=== PATIENT | female | born 1945 | race Caucasian/White ===

== ENCOUNTER 2018-05-31 12:10 | Inpatient (IN) | payer OTHER ==
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
[2018-05-31 13:03] LABS: % BASOPHILS 0.6 % (0.0-2.0); % EOSINOPHILS 0.2 % (0.0-5.0); % LYMPHOCYTES 16.8 % (20.0-50.0); % MONOCYTES 14.3 % (2.0-10.0); % NEUTROPHILS 68.1 % (40.0-80.0); HEMATOCRIT 27.2 % (41.0-60); HEMOGLOBIN 8.9 gm/dL (12-16); LYMPHOCYTE ABSOLUTE 1.2 Th/cmm (1.5-3.0); MEAN CELL VOLUME 88.5 fl (81-100); MEAN CORPUSCULAR HGB CONC 32.8 pg (28.0-36.0); MEAN PLATELET VOLUME 7.3 fl; NEUTROPHILE ABSOLUTE 4.7 Th/cmm (1.8-8.0); PLATELET COUNT 250 Th/cmm (150-400); RED BLOOD COUNT 3.07 Mil/cmm (3.80-5.20); RED CELL DISTRIBUTION WIDTH 14.9 % (11.5-20.0); WHITE BLOOD COUNT 6.9 Th/cmm (4.8-10.8)
[2018-05-31 13:19] LABS: ALB/GLOB RATIO 1.4 (1.0-1.8); ALBUMIN 3.3 gm/dL (3.7-5.3); ALKALINE PHOSPHATASE 58 U/L (34-104); ANION GAP 11.3 (7.0-16.0); BILIRUBIN,TOTAL 0.2 mg/dL (0.3-1.0); BUN - UREA NITROGEN 33 mg/dL (7-25); CALCIUM SERUM 8.4 mg/dL (8.6-10.3); CARBON DIOXIDE 27.6 mEq/L (21.0-31.0); CHLORIDE 104 mEq/L (98-107); CHOLESTEROL 123 mg/dL (<200); CREATININE - SERUM 1.1 mg/dL (0.6-1.2); GLUCOSE 108 mg/dL (70-105); HDL -HIGH DENSITY LIPOPROTEIN 45 mg/dL (23-92); POTASSIUM SERUM 3.9 mEq/L (3.5-5.1); SGOT 28 U/L (13-39); SGPT/ALT 19 U/L (7-52); SODIUM SERUM 139 mEq/L (136-145); TOTAL PROTEIN,SERUM 5.7 gm/dL (6.0-8.3); TRIGLYCERIDES 70 mg/dL (<150)
--- NOTE | 2018-05-31 13:38 | Diagnostic Imaging Report ---
Head CT without intravenous contrast Indication: Head trauma, recurrent falls Comparison: None Technique: Axial images were obtained from the vertex to the skull base without IV contrast. Coronal reconstructions were made. Total DLP: 607, [id number] FINDINGS: Images of the brain obtained without contrast demonstrate no evidence of an acute hemorrhage. Atrophy is noted. Mild white matter disease noted. The ventricles and basal cisterns are patent. No mass effect or midline shift. No evidence of a skull fracture or focal soft tissue swelling. There is partial opacification of the right ethmoid air cells and mucosal thickening of the sphenoid sinuses. IMPRESSION: No evidence of acute intracranial hemorrhage. Atrophy. Mild supratentorial white matter disease which is nonspecific and may be due to chronic microvessel ischemia.. Partial opacification of the posterior right ethmoid air cells with calcifications. Findings may be due to chronic sinusitis. Polyposis cannot be excluded.
[2018-05-31 15:15] LABS: URINE SOURCE CLEAN C
[2018-05-31 15:24] LABS: URINE BILIRUBIN NEGATIVE (NEGATIVE); URINE BLOOD NEGATIVE (NEGATIVE); URINE GLUCOSE (UA) NEGATIVE (NEGATIVE); URINE KETONE NEGATIVE (NEGATIVE); URINE LEUKOCYTE ESTERASE NEGATIVE (NEGATIVE); URINE NITRATE NEGATIVE (NEGATIVE); URINE PROTEIN NEGATIVE (NEGATIVE); URINE UROBILINOGEN 0.2 E.U./dL (0.2 - 1.0)
[2018-05-31 15:39] LABS: URINE CLARITY CLEAR (CLEAR); URINE COLOR STRAW
[2018-05-31 15:40] LABS: URINE MICROSCOPIC INDICATED? NO
[2018-05-31] MEDS ORDERED: Haloperidol Lactate 5 mg/mL 1mL Vial IM PRN (15:53)
[2018-05-31] MEDS ORDERED: Haloperidol Lactate 5 mg/mL 1mL Vial ONE (15:55)
[2018-05-31] MEDS ORDERED: Haloperidol Lactate 5 mg/mL 1mL Vial IM ONE (23:15)
[2018-06-01 00:22] VITALS: BP 140/78
[2018-06-01] MEDS: Levothyroxine 0.025 Mg Tab PO SCH (06:44)
[2018-06-01] MEDS: Multivitamin Tab PO SCH (09:49)
--- NOTE | 2018-06-01 14:19 | History & Physical ---
ADMIT DATE: 06/01/2018 DICTATED FOR: Dr. Chay Cloud. CHIEF COMPLAINT: Agitation. HISTORY OF PRESENT ILLNESS: A 72-year-old female who is a board and care resident, admitted to the Geropsych Unit due to 1-day history of agitation. PAST MEDICAL HISTORY: Hypertension, dementia. FAMILY HISTORY: Noncontributory. SOCIAL HISTORY: The patient is a board and care resident. SURGICAL HISTORY: Unknown. ALLERGIES: CODEINE. REVIEW OF SYSTEMS: GENERAL: Denies any fever or chills. CARDIOVASCULAR: Denies any chest pain. RESPIRATORY: Denies shortness of breath. GASTROINTESTINAL: Denies nausea, vomiting, abdominal pain. GENITOURINARY: Denies increased frequency or dysuria. NEUROLOGIC: No headaches, seizures or syncope. PHYSICAL EXAMINATION: GENERAL: Elderly female, awake, alert with some confusion. No apparent distress. VITAL SIGNS: Temperature 97.9, heart rate 68, blood pressure 140/78, respirations 18, O2 97%. HEENT: Head normocephalic, atraumatic. NECK: Supple. No mass. LUNGS: Clear bilaterally. ABDOMEN: Soft, nontender. LABORATORY DATA: WBC 6.8, H and H 8.9 and 27.2, platelet of 250. Sodium 139, potassium 3.9, chloride 104, BUN 33, creatinine 1.1. ASSESSMENT: Agitation, hypertension, dementia. PLAN: Continue patient's home medication. We will adjust the patient's blood pressure medications accordingly. We will continue to monitor this patient. JOB# [id number]
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
[2018-06-02] MEDS: Levothyroxine 0.025 Mg Tab PO SCH (06:31)
[2018-06-02] MEDS: Multivitamin Tab PO SCH (08:50)
--- NOTE | 2018-06-02 13:24 | Internal Medicine Prog Note ---
Internal Medicine Subjective - Subjective Service Date: 06/02/18 Patient seen and examined:: with staff Patient is:: awake, verbal, agitated Per staff patient has:: tolerating meds Internal Medicine Objective - Results Result Diagrams: 05/31/18 12:55 05/31/18 12:55 Recent Labs: Laboratory Last Values WBC 6.9 Th/cmm (4.8-10.8) 05/31/18 12:55 RBC 3.07 Mil/cmm (3.80-5.20) L 05/31/18 12:55 Hgb 8.9 gm/dL (12-16) L 05/31/18 12:55 Hct 27.2 % (41.0-60) L 05/31/18 12:55 MCV 88.5 fl (81-100) 05/31/18 12:55 MCH 29.0 pg (27.0-31.0) 05/31/18 12:55 MCHC Differential 32.8 pg (28.0-36.0) 05/31/18 12:55 RDW 14.9 % (11.5-20.0) 05/31/18 12:55 Plt Count 250 Th/cmm (150-400) 05/31/18 12:55 MPV 7.3 fl 05/31/18 12:55 Neutrophils % 68.1 % (40.0-80.0) 05/31/18 12:55 Lymphocytes % 16.8 % (20.0-50.0) L 05/31/18 12:55 Monocytes % 14.3 % (2.0-10.0) H 05/31/18 12:55 Eosinophils % 0.2 % (0.0-5.0) 05/31/18 12:55 Basophils % 0.6 % (0.0-2.0) 05/31/18 12:55 Sodium 139 mEq/L (136-145) 05/31/18 12:55 Potassium 3.9 mEq/L (3.5-5.1) 05/31/18 12:55 Chloride 104 mEq/L (98-107) 05/31/18 12:55 Carbon Dioxide 27.6 mEq/L (21.0-31.0) 05/31/18 12:55 Anion Gap 11.3 (7.0-16.0) 05/31/18 12:55 BUN 33 mg/dL (7-25) H 05/31/18 12:55 Creatinine 1.1 mg/dL (0.6-1.2) 05/31/18 12:55 Est GFR ( Amer) TNP 05/31/18 12:55 Est GFR (Non-Af Amer) TNP 05/31/18 12:55 BUN/Creatinine Ratio 30.0 05/31/18 12:55 Glucose 108 mg/dL (70-105) H 05/31/18 12:55 Calcium 8.4 mg/dL (8.6-10.3) L 05/31/18 12:55 Total Bilirubin 0.2 mg/dL (0.3-1.0) L 05/31/18 12:55 AST 28 U/L (13-39) 05/31/18 12:55 ALT 19 U/L (7-52) 05/31/18 12:55 Alkaline Phosphatase 58 U/L (34-104) 05/31/18 12:55 Total Protein 5.7 gm/dL (6.0-8.3) L 05/31/18 12:55 Albumin 3.3 gm/dL (3.7-5.3) L 05/31/18 12:55 Globulin 2.4 gm/dL 05/31/18 12:55 Albumin/Globulin Ratio 1.4 (1.0-1.8) 05/31/18 12:55 Triglycerides 70 mg/dL (<150) 05/31/18 12:55 Cholesterol 123 mg/dL (<200) 05/31/18 12:55 LDL Cholesterol Direct 63 mg/dL (75-193) L 05/31/18 12:55 HDL Cholesterol 45 mg/dL (23-92) 05/31/18 12:55 TSH 3.69 uIU/ml (0.34-5.60) 05/31/18 12:55 Urine Source CLEAN C 05/31/18 14:06 Urine Color STRAW 05/31/18 14:06 Urine Clarity CLEAR (CLEAR) 05/31/18 14:06 Urine pH 6.0 (4.6 - 8.0) 05/31/18 14:06 Ur Specific [place] 1.010 (1.005-1.030) 05/31/18 14:06 Urine Protein NEGATIVE mg/dL (NEGATIVE) 05/31/18 14:06 Urine Glucose (UA) NEGATIVE mg/dL (NEGATIVE) 05/31/18 14:06 Urine Ketones NEGATIVE mg/dL (NEGATIVE) 05/31/18 14:06 Urine Blood NEGATIVE (NEGATIVE) 05/31/18 14:06 Urine Nitrate NEGATIVE (NEGATIVE) 05/31/18 14:06 Urine Bilirubin NEGATIVE (NEGATIVE) 05/31/18 14:06 Urine Urobilinogen 0.2 E.U./dL (0.2 - 1.0) 05/31/18 14:06 Ur Leukocyte Esterase NEGATIVE (NEGATIVE) 05/31/18 14:06 RPR NONREACTIVE (NONREACTIVE) 05/31/18 12:55 - Physical Exam Vitals and I&O: Vital Signs Temp 97.7 F 06/02/18 06:22 Pulse 79 06/02/18 06:22 Resp 19 06/02/18 06:22 BP 145/88 06/02/18 06:22 Pulse Ox 97 06/02/18 06:22 Intake & Output 06/01/18 06/02/18 06/02/18 18:59 06:59 18:59 Intake Total 720 240 Output Total 120 Balance 720 120 Intake: Oral 720 240 Output: Urine 120 Other: # Voids 3 # Bowel Movements 2 Active Medications: Current Medications Atorvastatin Calcium (Lipitor) 40 mg PO DAILY [facility] Stop: 07/31/18 08:59 Last Admin: 06/02/18 08:50 Dose: 40 mg Citalopram Hydrobromide (Celexa) 10 mg PO DAILY [facility] Stop: 07/31/18 08:59 Last Admin: 06/02/18 08:50 Dose: 10 mg Divalproex Sodium (Depakote Dr) 500 mg PO TID [facility]; Protocol Stop: 07/31/18 08:59 Last Admin: 06/02/18 08:50 Dose: 500 mg Docusate Sodium (Colace) 100 mg PO DAILY PRN PRN Reason: Constipation Stop: 07/31/18 00:21 Donepezil HCl (Aricept) 5 mg PO DAILY [facility] Stop: 07/31/18 08:59 Last Admin: 06/02/18 08:50 Dose: 5 mg Levothyroxine Sodium (Synthroid) 0.025 mg PO QDAC [facility] Stop: 07/31/18 07:29 Last Admin: 06/02/18 06:31 Dose: Not Given Lorazepam (Ativan) 0.5 mg PO Q6HR PRN; Protocol PRN Reason: Anxiety Stop: 07/31/18 00:21 Multivitamins/Vitamin C (Theragran) 1 tab PO DAILY [facility] Stop: 07/31/18 08:59 Last Admin: 06/02/18 08:50 Dose: 1 tab Quetiapine Fumarate (Seroquel) 25 mg PO HS [facility]; Protocol Stop: 08/01/18 20:59 General: alert HEENT: NC/AT, PERRLA Neck: Supple Lungs: CTAB Cardiovascular: RRR, Normal S1, Normal S2, without murmur Abdomen: soft, non-tender, non-distended, positive bowel sound Extremities: excoriation Internal Medicine Assmt/Plan - Assessment Assessment: ASSESSMENT: Agitation, hypertension, dementia. - Plan Plan: PLAN: Continue patient's home medication. We will adjust the patient's blood pressure medications accordingly. We will continue to monitor this patient.
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
[2018-06-03] MEDS: Levothyroxine 0.025 Mg Tab PO SCH (06:32)
[2018-06-03] MEDS: Multivitamin Tab PO SCH (08:47)
--- NOTE | 2018-06-03 15:45 | Internal Medicine Prog Note ---
Internal Medicine Subjective - Subjective Service Date: 06/03/18 Patient is:: awake, verbal, agitated Per staff patient has:: tolerating meds Internal Medicine Objective - Results Result Diagrams: 05/31/18 12:55 05/31/18 12:55 Recent Labs: Laboratory Last Values WBC 6.9 Th/cmm (4.8-10.8) 05/31/18 12:55 RBC 3.07 Mil/cmm (3.80-5.20) L 05/31/18 12:55 Hgb 8.9 gm/dL (12-16) L 05/31/18 12:55 Hct 27.2 % (41.0-60) L 05/31/18 12:55 MCV 88.5 fl (81-100) 05/31/18 12:55 MCH 29.0 pg (27.0-31.0) 05/31/18 12:55 MCHC Differential 32.8 pg (28.0-36.0) 05/31/18 12:55 RDW 14.9 % (11.5-20.0) 05/31/18 12:55 Plt Count 250 Th/cmm (150-400) 05/31/18 12:55 MPV 7.3 fl 05/31/18 12:55 Neutrophils % 68.1 % (40.0-80.0) 05/31/18 12:55 Lymphocytes % 16.8 % (20.0-50.0) L 05/31/18 12:55 Monocytes % 14.3 % (2.0-10.0) H 05/31/18 12:55 Eosinophils % 0.2 % (0.0-5.0) 05/31/18 12:55 Basophils % 0.6 % (0.0-2.0) 05/31/18 12:55 Sodium 139 mEq/L (136-145) 05/31/18 12:55 Potassium 3.9 mEq/L (3.5-5.1) 05/31/18 12:55 Chloride 104 mEq/L (98-107) 05/31/18 12:55 Carbon Dioxide 27.6 mEq/L (21.0-31.0) 05/31/18 12:55 Anion Gap 11.3 (7.0-16.0) 05/31/18 12:55 BUN 33 mg/dL (7-25) H 05/31/18 12:55 Creatinine 1.1 mg/dL (0.6-1.2) 05/31/18 12:55 Est GFR ( Amer) TNP 05/31/18 12:55 Est GFR (Non-Af Amer) TNP 05/31/18 12:55 BUN/Creatinine Ratio 30.0 05/31/18 12:55 Glucose 108 mg/dL (70-105) H 05/31/18 12:55 Calcium 8.4 mg/dL (8.6-10.3) L 05/31/18 12:55 Total Bilirubin 0.2 mg/dL (0.3-1.0) L 05/31/18 12:55 AST 28 U/L (13-39) 05/31/18 12:55 ALT 19 U/L (7-52) 05/31/18 12:55 Alkaline Phosphatase 58 U/L (34-104) 05/31/18 12:55 Total Protein 5.7 gm/dL (6.0-8.3) L 05/31/18 12:55 Albumin 3.3 gm/dL (3.7-5.3) L 05/31/18 12:55 Globulin 2.4 gm/dL 05/31/18 12:55 Albumin/Globulin Ratio 1.4 (1.0-1.8) 05/31/18 12:55 Triglycerides 70 mg/dL (<150) 05/31/18 12:55 Cholesterol 123 mg/dL (<200) 05/31/18 12:55 LDL Cholesterol Direct 63 mg/dL (75-193) L 05/31/18 12:55 HDL Cholesterol 45 mg/dL (23-92) 05/31/18 12:55 TSH 3.69 uIU/ml (0.34-5.60) 05/31/18 12:55 Urine Source CLEAN C 05/31/18 14:06 Urine Color STRAW 05/31/18 14:06 Urine Clarity CLEAR (CLEAR) 05/31/18 14:06 Urine pH 6.0 (4.6 - 8.0) 05/31/18 14:06 Ur Specific [place] 1.010 (1.005-1.030) 05/31/18 14:06 Urine Protein NEGATIVE mg/dL (NEGATIVE) 05/31/18 14:06 Urine Glucose (UA) NEGATIVE mg/dL (NEGATIVE) 05/31/18 14:06 Urine Ketones NEGATIVE mg/dL (NEGATIVE) 05/31/18 14:06 Urine Blood NEGATIVE (NEGATIVE) 05/31/18 14:06 Urine Nitrate NEGATIVE (NEGATIVE) 05/31/18 14:06 Urine Bilirubin NEGATIVE (NEGATIVE) 05/31/18 14:06 Urine Urobilinogen 0.2 E.U./dL (0.2 - 1.0) 05/31/18 14:06 Ur Leukocyte Esterase NEGATIVE (NEGATIVE) 05/31/18 14:06 RPR NONREACTIVE (NONREACTIVE) 05/31/18 12:55 - Physical Exam Vitals and I&O: Vital Signs Temp 97.4 F 06/03/18 06:43 Pulse 90 06/03/18 06:43 Resp 20 06/03/18 06:43 BP 153/95 06/03/18 06:43 Pulse Ox 100 06/03/18 06:43 Intake & Output 06/02/18 06/03/18 06/03/18 18:59 06:59 18:59 Intake Total 1300 Balance 1300 Intake: Oral 1300 Other: # Voids 3 2 # Bowel Movements 0 0 Active Medications: Current Medications Atorvastatin Calcium (Lipitor) 40 mg PO DAILY [facility] Stop: 07/31/18 08:59 Last Admin: 06/03/18 08:48 Dose: 40 mg Citalopram Hydrobromide (Celexa) 10 mg PO DAILY [facility] Stop: 07/31/18 08:59 Last Admin: 06/03/18 09:00 Dose: 10 mg Divalproex Sodium (Depakote Dr) 500 mg PO TID [facility]; Protocol Stop: 07/31/18 08:59 Last Admin: 06/03/18 15:23 Dose: 500 mg Docusate Sodium (Colace) 100 mg PO DAILY PRN PRN Reason: Constipation Stop: 07/31/18 00:21 Donepezil HCl (Aricept) 5 mg PO DAILY [facility] Stop: 07/31/18 08:59 Last Admin: 06/03/18 08:48 Dose: 5 mg Levothyroxine Sodium (Synthroid) 0.025 mg PO QDAC [facility] Stop: 07/31/18 07:29 Last Admin: 06/03/18 06:32 Dose: 0.025 mg Lorazepam (Ativan) 0.5 mg PO Q6HR PRN; Protocol PRN Reason: Anxiety Stop: 07/31/18 00:21 Last Admin: 06/03/18 15:23 Dose: 0.5 mg Multivitamins/Vitamin C (Theragran) 1 tab PO DAILY [facility] Stop: 07/31/18 08:59 Last Admin: 06/03/18 08:47 Dose: 1 tab Quetiapine Fumarate (Seroquel) 37.5 mg PO HS [facility]; Protocol Stop: 08/02/18 20:59 General: alert HEENT: NC/AT, PERRLA Neck: Supple Lungs: CTAB Cardiovascular: RRR, Normal S1, Normal S2, without murmur Abdomen: soft, non-tender, non-distended, positive bowel sound Extremities: excoriation Internal Medicine Assmt/Plan - Assessment Assessment: ASSESSMENT: Agitation, hypertension, dementia. - Plan Plan: PLAN: Continue patient's home medication. We will adjust the patient's blood pressure medications accordingly. We will continue to monitor this patient.
--- NOTE | 2018-06-03 20:57 | Progress Notes ---
DATE: 06/03/2018 The patient in the hospital, slept for about 6 hours. No episodes of awakening. 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 Ongoing safety concerns. The patient also believing that we were all in her home and she is asking us to leave. She is very disoriented, disrupting the milieu. I will be increasing her dosing of Seroquel today to attempt to target these delusions, odd ideations. JOB# [id number]
[2018-06-04] MEDS: Levothyroxine 0.025 Mg Tab PO SCH (06:33)
[2018-06-04] MEDS: Multivitamin Tab PO SCH (08:36)
--- NOTE | 2018-06-04 12:26 | Internal Medicine Prog Note ---
Internal Medicine Subjective - Subjective Patient seen and examined:: with staff, chart reviewed Patient is:: awake, verbal, interactive, agitated Per staff patient has:: no adverse event, no episodes of fall, tolerating meds Internal Medicine Objective - Results Result Diagrams: 05/31/18 12:55 05/31/18 12:55 Recent Labs: Laboratory Last Values WBC 6.9 Th/cmm (4.8-10.8) 05/31/18 12:55 RBC 3.07 Mil/cmm (3.80-5.20) L 05/31/18 12:55 Hgb 8.9 gm/dL (12-16) L 05/31/18 12:55 Hct 27.2 % (41.0-60) L 05/31/18 12:55 MCV 88.5 fl (81-100) 05/31/18 12:55 MCH 29.0 pg (27.0-31.0) 05/31/18 12:55 MCHC Differential 32.8 pg (28.0-36.0) 05/31/18 12:55 RDW 14.9 % (11.5-20.0) 05/31/18 12:55 Plt Count 250 Th/cmm (150-400) 05/31/18 12:55 MPV 7.3 fl 05/31/18 12:55 Neutrophils % 68.1 % (40.0-80.0) 05/31/18 12:55 Lymphocytes % 16.8 % (20.0-50.0) L 05/31/18 12:55 Monocytes % 14.3 % (2.0-10.0) H 05/31/18 12:55 Eosinophils % 0.2 % (0.0-5.0) 05/31/18 12:55 Basophils % 0.6 % (0.0-2.0) 05/31/18 12:55 Sodium 139 mEq/L (136-145) 05/31/18 12:55 Potassium 3.9 mEq/L (3.5-5.1) 05/31/18 12:55 Chloride 104 mEq/L (98-107) 05/31/18 12:55 Carbon Dioxide 27.6 mEq/L (21.0-31.0) 05/31/18 12:55 Anion Gap 11.3 (7.0-16.0) 05/31/18 12:55 BUN 33 mg/dL (7-25) H 05/31/18 12:55 Creatinine 1.1 mg/dL (0.6-1.2) 05/31/18 12:55 Est GFR ( Amer) TNP 05/31/18 12:55 Est GFR (Non-Af Amer) TNP 05/31/18 12:55 BUN/Creatinine Ratio 30.0 05/31/18 12:55 Glucose 108 mg/dL (70-105) H 05/31/18 12:55 Calcium 8.4 mg/dL (8.6-10.3) L 05/31/18 12:55 Total Bilirubin 0.2 mg/dL (0.3-1.0) L 05/31/18 12:55 AST 28 U/L (13-39) 05/31/18 12:55 ALT 19 U/L (7-52) 05/31/18 12:55 Alkaline Phosphatase 58 U/L (34-104) 05/31/18 12:55 Total Protein 5.7 gm/dL (6.0-8.3) L 05/31/18 12:55 Albumin 3.3 gm/dL (3.7-5.3) L 05/31/18 12:55 Globulin 2.4 gm/dL 05/31/18 12:55 Albumin/Globulin Ratio 1.4 (1.0-1.8) 05/31/18 12:55 Triglycerides 70 mg/dL (<150) 05/31/18 12:55 Cholesterol 123 mg/dL (<200) 05/31/18 12:55 LDL Cholesterol Direct 63 mg/dL (75-193) L 05/31/18 12:55 HDL Cholesterol 45 mg/dL (23-92) 05/31/18 12:55 TSH 3.69 uIU/ml (0.34-5.60) 05/31/18 12:55 Urine Source CLEAN C 05/31/18 14:06 Urine Color STRAW 05/31/18 14:06 Urine Clarity CLEAR (CLEAR) 05/31/18 14:06 Urine pH 6.0 (4.6 - 8.0) 05/31/18 14:06 Ur Specific [place] 1.010 (1.005-1.030) 05/31/18 14:06 Urine Protein NEGATIVE mg/dL (NEGATIVE) 05/31/18 14:06 Urine Glucose (UA) NEGATIVE mg/dL (NEGATIVE) 05/31/18 14:06 Urine Ketones NEGATIVE mg/dL (NEGATIVE) 05/31/18 14:06 Urine Blood NEGATIVE (NEGATIVE) 05/31/18 14:06 Urine Nitrate NEGATIVE (NEGATIVE) 05/31/18 14:06 Urine Bilirubin NEGATIVE (NEGATIVE) 05/31/18 14:06 Urine Urobilinogen 0.2 E.U./dL (0.2 - 1.0) 05/31/18 14:06 Ur Leukocyte Esterase NEGATIVE (NEGATIVE) 05/31/18 14:06 RPR NONREACTIVE (NONREACTIVE) 05/31/18 12:55 - Physical Exam Vitals and I&O: Vital Signs Temp 98.1 F 06/04/18 05:34 Pulse 81 06/04/18 05:34 Resp 19 06/04/18 05:34 BP 118/78 06/04/18 05:34 Pulse Ox 97 06/04/18 05:34 Intake & Output 06/03/18 06/04/18 06/04/18 18:59 06:59 18:59 Intake Total 240 Output Total 1 Balance 239 Intake: Oral 240 Output: Urine/Stool Mix 1 Other: # Voids 1 Active Medications: Current Medications Atorvastatin Calcium (Lipitor) 40 mg PO DAILY [facility] Stop: 07/31/18 08:59 Last Admin: 06/04/18 08:36 Dose: 40 mg Citalopram Hydrobromide (Celexa) 10 mg PO DAILY [facility] Stop: 07/31/18 08:59 Last Admin: 06/04/18 08:35 Dose: 10 mg Divalproex Sodium (Depakote Dr) 500 mg PO TID [facility]; Protocol Stop: 07/31/18 08:59 Last Admin: 06/04/18 08:36 Dose: 500 mg Docusate Sodium (Colace) 100 mg PO DAILY PRN PRN Reason: Constipation Stop: 07/31/18 00:21 Donepezil HCl (Aricept) 5 mg PO DAILY [facility] Stop: 07/31/18 08:59 Last Admin: 06/04/18 08:35 Dose: 5 mg Levothyroxine Sodium (Synthroid) 0.025 mg PO QDAC [facility] Stop: 07/31/18 07:29 Last Admin: 06/04/18 06:33 Dose: 0.025 mg Lorazepam (Ativan) 0.5 mg PO Q6HR PRN; Protocol PRN Reason: Anxiety Stop: 07/31/18 00:21 Last Admin: 06/03/18 22:08 Dose: 0.5 mg Multivitamins/Vitamin C (Theragran) 1 tab PO DAILY [facility] Stop: 07/31/18 08:59 Last Admin: 06/04/18 08:36 Dose: 1 tab Quetiapine Fumarate (Seroquel) 50 mg PO HS [facility]; Protocol Stop: 08/03/18 20:59 General: demented HEENT: NC/AT, PERRLA Neck: Supple Lungs: CTAB Cardiovascular: RRR, Normal S1, Normal S2, without murmur Abdomen: soft, non-tender, non-distended, positive bowel sound Extremities: excoriation Neurological: no change Internal Medicine Assmt/Plan - Assessment Assessment: - Assessment Assessment: ASSESSMENT: Agitation, hypertension, dementia. anemia ri hypothroidism - - Plan Plan: Plan: PLAN: Continue patient's home medication. We will adjust the patient's blood pressure medications accordingly. We will continue to monitor this patient. monitor h and h cont on synthroid shawanda baires
[2018-06-05] MEDS: Levothyroxine 0.025 Mg Tab PO SCH (06:33)
[2018-06-05] MEDS ORDERED: Haloperidol Lactate 5 mg/mL 1mL Vial IM ONE (07:00)
--- NOTE | 2018-06-05 07:19 | Progress Notes ---
DATE: 06/04/2018 The patient awake, alert, but very confused. 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 AO to name only. ASSESSMENT: The patient seems calmer, more cooperative. I will be increasing and titrating her doses of medications to target ongoing mood symptoms, psychotic symptoms. JOB# [id number]
[2018-06-05] MEDS: Multivitamin Tab PO SCH (09:00)
--- NOTE | 2018-06-05 12:49 | Internal Medicine Prog Note ---
Internal Medicine Subjective - Subjective Patient seen and examined:: with staff, chart reviewed Patient is:: awake, verbal, interactive, agitated Per staff patient has:: no adverse event, no episodes of fall, tolerating meds Internal Medicine Objective - Results Result Diagrams: 05/31/18 12:55 05/31/18 12:55 Recent Labs: Laboratory Last Values WBC 6.9 Th/cmm (4.8-10.8) 05/31/18 12:55 RBC 3.07 Mil/cmm (3.80-5.20) L 05/31/18 12:55 Hgb 8.9 gm/dL (12-16) L 05/31/18 12:55 Hct 27.2 % (41.0-60) L 05/31/18 12:55 MCV 88.5 fl (81-100) 05/31/18 12:55 MCH 29.0 pg (27.0-31.0) 05/31/18 12:55 MCHC Differential 32.8 pg (28.0-36.0) 05/31/18 12:55 RDW 14.9 % (11.5-20.0) 05/31/18 12:55 Plt Count 250 Th/cmm (150-400) 05/31/18 12:55 MPV 7.3 fl 05/31/18 12:55 Neutrophils % 68.1 % (40.0-80.0) 05/31/18 12:55 Lymphocytes % 16.8 % (20.0-50.0) L 05/31/18 12:55 Monocytes % 14.3 % (2.0-10.0) H 05/31/18 12:55 Eosinophils % 0.2 % (0.0-5.0) 05/31/18 12:55 Basophils % 0.6 % (0.0-2.0) 05/31/18 12:55 Sodium 139 mEq/L (136-145) 05/31/18 12:55 Potassium 3.9 mEq/L (3.5-5.1) 05/31/18 12:55 Chloride 104 mEq/L (98-107) 05/31/18 12:55 Carbon Dioxide 27.6 mEq/L (21.0-31.0) 05/31/18 12:55 Anion Gap 11.3 (7.0-16.0) 05/31/18 12:55 BUN 33 mg/dL (7-25) H 05/31/18 12:55 Creatinine 1.1 mg/dL (0.6-1.2) 05/31/18 12:55 Est GFR ( Amer) TNP 05/31/18 12:55 Est GFR (Non-Af Amer) TNP 05/31/18 12:55 BUN/Creatinine Ratio 30.0 05/31/18 12:55 Glucose 108 mg/dL (70-105) H 05/31/18 12:55 Calcium 8.4 mg/dL (8.6-10.3) L 05/31/18 12:55 Total Bilirubin 0.2 mg/dL (0.3-1.0) L 05/31/18 12:55 AST 28 U/L (13-39) 05/31/18 12:55 ALT 19 U/L (7-52) 05/31/18 12:55 Alkaline Phosphatase 58 U/L (34-104) 05/31/18 12:55 Total Protein 5.7 gm/dL (6.0-8.3) L 05/31/18 12:55 Albumin 3.3 gm/dL (3.7-5.3) L 05/31/18 12:55 Globulin 2.4 gm/dL 05/31/18 12:55 Albumin/Globulin Ratio 1.4 (1.0-1.8) 05/31/18 12:55 Triglycerides 70 mg/dL (<150) 05/31/18 12:55 Cholesterol 123 mg/dL (<200) 05/31/18 12:55 LDL Cholesterol Direct 63 mg/dL (75-193) L 05/31/18 12:55 HDL Cholesterol 45 mg/dL (23-92) 05/31/18 12:55 TSH 3.69 uIU/ml (0.34-5.60) 05/31/18 12:55 Urine Source CLEAN C 05/31/18 14:06 Urine Color STRAW 05/31/18 14:06 Urine Clarity CLEAR (CLEAR) 05/31/18 14:06 Urine pH 6.0 (4.6 - 8.0) 05/31/18 14:06 Ur Specific [place] 1.010 (1.005-1.030) 05/31/18 14:06 Urine Protein NEGATIVE mg/dL (NEGATIVE) 05/31/18 14:06 Urine Glucose (UA) NEGATIVE mg/dL (NEGATIVE) 05/31/18 14:06 Urine Ketones NEGATIVE mg/dL (NEGATIVE) 05/31/18 14:06 Urine Blood NEGATIVE (NEGATIVE) 05/31/18 14:06 Urine Nitrate NEGATIVE (NEGATIVE) 05/31/18 14:06 Urine Bilirubin NEGATIVE (NEGATIVE) 05/31/18 14:06 Urine Urobilinogen 0.2 E.U./dL (0.2 - 1.0) 05/31/18 14:06 Ur Leukocyte Esterase NEGATIVE (NEGATIVE) 05/31/18 14:06 RPR NONREACTIVE (NONREACTIVE) 05/31/18 12:55 - Physical Exam Vitals and I&O: Vital Signs Temp 0 F 06/05/18 06:11 Pulse 95 06/04/18 20:04 Resp 20 06/04/18 20:04 BP 140/78 06/04/18 20:04 Pulse Ox 100 06/04/18 20:04 Intake & Output 06/04/18 06/05/18 06/05/18 18:59 06:59 18:59 Intake Total 800 240 Balance 800 240 Weight (lbs) 67.585 kg Intake: Oral 800 240 Other: # Voids 3 3 # Bowel Movements 1 0 Weight Source Bedscale Active Medications: Current Medications Atorvastatin Calcium (Lipitor) 40 mg PO DAILY [facility] Stop: 07/31/18 08:59 Last Admin: 06/05/18 09:00 Dose: 40 mg Citalopram Hydrobromide (Celexa) 10 mg PO DAILY [facility] Stop: 07/31/18 08:59 Last Admin: 06/05/18 09:00 Dose: 10 mg Divalproex Sodium (Depakote Dr) 500 mg PO TID [facility]; Protocol Stop: 07/31/18 08:59 Last Admin: 06/05/18 09:00 Dose: 500 mg Docusate Sodium (Colace) 100 mg PO DAILY PRN PRN Reason: Constipation Stop: 07/31/18 00:21 Donepezil HCl (Aricept) 5 mg PO DAILY [facility] Stop: 07/31/18 08:59 Last Admin: 06/05/18 09:00 Dose: 5 mg Levothyroxine Sodium (Synthroid) 0.025 mg PO QDAC [facility] Stop: 07/31/18 07:29 Last Admin: 06/05/18 06:33 Dose: 0.025 mg Lorazepam (Ativan) 0.5 mg PO Q6HR PRN; Protocol PRN Reason: Anxiety Stop: 07/31/18 00:21 Last Admin: 06/03/18 22:08 Dose: 0.5 mg Multivitamins/Vitamin C (Theragran) 1 tab PO DAILY [facility] Stop: 07/31/18 08:59 Last Admin: 06/05/18 09:00 Dose: 1 tab Quetiapine Fumarate (Seroquel) 50 mg PO HS [facility]; Protocol Stop: 08/03/18 20:59 Last Admin: 06/04/18 20:20 Dose: 50 mg General: demented HEENT: NC/AT, PERRLA Neck: Supple Lungs: CTAB Cardiovascular: RRR, Normal S1, Normal S2, without murmur Abdomen: soft, non-tender, non-distended, positive bowel sound Extremities: excoriation Neurological: no change Internal Medicine Assmt/Plan - Assessment Assessment: - Assessment Assessment: ASSESSMENT: Agitation, hypertension, dementia. anemia ri hypothroidism - - Plan Plan: Plan: PLAN: Continue patient's home medication. We will adjust the patient's blood pressure medications accordingly. We will continue to monitor this patient. monitor h and h cont on synthroid shawanda rn Nutritional Asmnt/Malnutr-PDOC - Dietary Evaluation Malnutrition Findings (Please click <Entered> for more info): Nutritional Asmnt/Malnutrition Start: 06/04/18 15: 15 Text: Status: Complete Freq: Protocol: Document 06/04/18 15:15 LCHENG (Rec: 06/04/18 15:30 [email or web address]) Nutritional Asmnt/Malnutrition Patient General Information Nutritional Screening Low Risk Diagnosis psychosis, dementia Pertinent Medical Hx/Surgical Hx HTN, dementia Subjective Information Pt seen eating lunch in dining room, confused, asking where her father is. Per EMR, PO itnake 75-100%. Current Diet Order/ Nutrition Support regular Pertinent Medications lipitor, colace, synthroid, theragran, seroquel Pertinent Labs 05/31 BUN 33, Ca 8.4, Clb 3.3 Nutritional Hx/Data Height 1.65 m Height (Calculated Centimeters) 165.1 Current Weight (lbs) 68.039 kg Weight (Calculated Kilograms) 68.0 Weight (Calculated Grams) 35305.9 [place] Body Weight 130 Body Mass Index (BMI) 25.0 Weight Status Overweight GI Symptoms GI Symptoms None Last BM 06/01 x 2 Difficult in: None Skin Integrity/Comment: intact Current %PO Good (75-100%) Estimated Nutritional Goals BEE in Kcals: Using Current wt Calories/Kcals/Kg 23-27 Kcals Calculated 8052-2703 Protein: Using Current wt Protein g/k Protein Calculated 68 Fluid: ml 1564-1836ml (1ml/kcal) Nutritional Problem No current Nutrition Prob Problem N/A Malnutrition Alert Is there a minimum of two criteria No selected? Query Text:Check all the applicable criteria. A minimum of two criteria are recommended for diagnosis of either severe or non-severe malnutrition. Malnutrition Related to Morbid Obesity Malnutrition related to morbid obesity No Intervention/Recommendation Comments 1. Continue with regular diet as ordered. 2. Monitor PO intake, wt, labs and skin integrity 3. F/U as low risk in 7 days Expected Outcomes/Goals Expected Outcomes/Goals 1. PO intake to meet at least 75% of nutritional needs. 2. Wt stability, skin to remain intact, labs to approach WNL.
[2018-06-06] MEDS: Levothyroxine 0.025 Mg Tab PO SCH (06:32)
[2018-06-06] MEDS: Multivitamin Tab PO SCH (08:35)
--- NOTE | 2018-06-06 10:41 | Progress Notes ---
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 Ongoing delusions, essentially A and O x name only. ASSESSMENT: The patient remains unruly, ongoing safety concerns. We will continue to monitor. The patient remains highly impulsive, unpredictable. [facility]# [id number]
--- NOTE | 2018-06-06 11:42 | Internal Medicine Prog Note ---
Internal Medicine Subjective - Subjective Patient seen and examined:: with staff, chart reviewed Patient is:: awake, verbal, interactive, agitated Per staff patient has:: no adverse event, no episodes of fall, tolerating meds Internal Medicine Objective - Results Result Diagrams: 05/31/18 12:55 05/31/18 12:55 Recent Labs: Laboratory Last Values WBC 6.9 Th/cmm (4.8-10.8) 05/31/18 12:55 RBC 3.07 Mil/cmm (3.80-5.20) L 05/31/18 12:55 Hgb 8.9 gm/dL (12-16) L 05/31/18 12:55 Hct 27.2 % (41.0-60) L 05/31/18 12:55 MCV 88.5 fl (81-100) 05/31/18 12:55 MCH 29.0 pg (27.0-31.0) 05/31/18 12:55 MCHC Differential 32.8 pg (28.0-36.0) 05/31/18 12:55 RDW 14.9 % (11.5-20.0) 05/31/18 12:55 Plt Count 250 Th/cmm (150-400) 05/31/18 12:55 MPV 7.3 fl 05/31/18 12:55 Neutrophils % 68.1 % (40.0-80.0) 05/31/18 12:55 Lymphocytes % 16.8 % (20.0-50.0) L 05/31/18 12:55 Monocytes % 14.3 % (2.0-10.0) H 05/31/18 12:55 Eosinophils % 0.2 % (0.0-5.0) 05/31/18 12:55 Basophils % 0.6 % (0.0-2.0) 05/31/18 12:55 Sodium 139 mEq/L (136-145) 05/31/18 12:55 Potassium 3.9 mEq/L (3.5-5.1) 05/31/18 12:55 Chloride 104 mEq/L (98-107) 05/31/18 12:55 Carbon Dioxide 27.6 mEq/L (21.0-31.0) 05/31/18 12:55 Anion Gap 11.3 (7.0-16.0) 05/31/18 12:55 BUN 33 mg/dL (7-25) H 05/31/18 12:55 Creatinine 1.1 mg/dL (0.6-1.2) 05/31/18 12:55 Est GFR ( Amer) TNP 05/31/18 12:55 Est GFR (Non-Af Amer) TNP 05/31/18 12:55 BUN/Creatinine Ratio 30.0 05/31/18 12:55 Glucose 108 mg/dL (70-105) H 05/31/18 12:55 Calcium 8.4 mg/dL (8.6-10.3) L 05/31/18 12:55 Total Bilirubin 0.2 mg/dL (0.3-1.0) L 05/31/18 12:55 AST 28 U/L (13-39) 05/31/18 12:55 ALT 19 U/L (7-52) 05/31/18 12:55 Alkaline Phosphatase 58 U/L (34-104) 05/31/18 12:55 Total Protein 5.7 gm/dL (6.0-8.3) L 05/31/18 12:55 Albumin 3.3 gm/dL (3.7-5.3) L 05/31/18 12:55 Globulin 2.4 gm/dL 05/31/18 12:55 Albumin/Globulin Ratio 1.4 (1.0-1.8) 05/31/18 12:55 Triglycerides 70 mg/dL (<150) 05/31/18 12:55 Cholesterol 123 mg/dL (<200) 05/31/18 12:55 LDL Cholesterol Direct 63 mg/dL (75-193) L 05/31/18 12:55 HDL Cholesterol 45 mg/dL (23-92) 05/31/18 12:55 TSH 3.69 uIU/ml (0.34-5.60) 05/31/18 12:55 Urine Source CLEAN C 05/31/18 14:06 Urine Color STRAW 05/31/18 14:06 Urine Clarity CLEAR (CLEAR) 05/31/18 14:06 Urine pH 6.0 (4.6 - 8.0) 05/31/18 14:06 Ur Specific [place] 1.010 (1.005-1.030) 05/31/18 14:06 Urine Protein NEGATIVE mg/dL (NEGATIVE) 05/31/18 14:06 Urine Glucose (UA) NEGATIVE mg/dL (NEGATIVE) 05/31/18 14:06 Urine Ketones NEGATIVE mg/dL (NEGATIVE) 05/31/18 14:06 Urine Blood NEGATIVE (NEGATIVE) 05/31/18 14:06 Urine Nitrate NEGATIVE (NEGATIVE) 05/31/18 14:06 Urine Bilirubin NEGATIVE (NEGATIVE) 05/31/18 14:06 Urine Urobilinogen 0.2 E.U./dL (0.2 - 1.0) 05/31/18 14:06 Ur Leukocyte Esterase NEGATIVE (NEGATIVE) 05/31/18 14:06 RPR NONREACTIVE (NONREACTIVE) 05/31/18 12:55 - Physical Exam Vitals and I&O: Vital Signs Temp 97 F 06/06/18 06:11 Pulse 76 06/06/18 06:11 Resp 18 06/06/18 08:00 BP 148/60 06/06/18 06:11 Pulse Ox 98 06/06/18 06:11 Intake & Output 06/05/18 06/06/18 06/06/18 18:59 06:59 18:59 Intake Total 900 300 Balance 900 300 Intake: Oral 900 300 Other: # Voids 3 2 # Bowel Movements 1 Active Medications: Current Medications Atorvastatin Calcium (Lipitor) 40 mg PO DAILY [facility] Stop: 07/31/18 08:59 Last Admin: 06/06/18 08:33 Dose: 40 mg Citalopram Hydrobromide (Celexa) 10 mg PO DAILY [facility] Stop: 07/31/18 08:59 Last Admin: 06/06/18 08:34 Dose: 10 mg Divalproex Sodium (Depakote Dr) 500 mg PO TID [facility]; Protocol Stop: 07/31/18 08:59 Last Admin: 06/06/18 08:33 Dose: 500 mg Docusate Sodium (Colace) 100 mg PO DAILY PRN PRN Reason: Constipation Stop: 07/31/18 00:21 Donepezil HCl (Aricept) 5 mg PO DAILY [facility] Stop: 07/31/18 08:59 Last Admin: 06/06/18 08:34 Dose: 5 mg Levothyroxine Sodium (Synthroid) 0.025 mg PO QDAC [facility] Stop: 07/31/18 07:29 Last Admin: 06/06/18 06:32 Dose: 0.025 mg Lorazepam (Ativan) 0.5 mg PO Q6HR PRN; Protocol PRN Reason: Anxiety Stop: 07/31/18 00:21 Last Admin: 06/06/18 08:33 Dose: 0.5 mg Multivitamins/Vitamin C (Theragran) 1 tab PO DAILY [facility] Stop: 07/31/18 08:59 Last Admin: 06/06/18 08:35 Dose: 1 tab Quetiapine Fumarate (Seroquel) 50 mg PO HS [facility]; Protocol Stop: 08/03/18 20:59 Last Admin: 06/05/18 22:40 Dose: Not Given General: demented HEENT: NC/AT, PERRLA Neck: Supple Lungs: CTAB Cardiovascular: RRR, Normal S1, Normal S2, without murmur Abdomen: soft, non-tender, non-distended, positive bowel sound Extremities: excoriation Neurological: no change Internal Medicine Assmt/Plan - Assessment Assessment: - Assessment Assessment: ASSESSMENT: Agitation, hypertension, dementia. anemia ri hypothroidism - - Plan Plan: Plan: PLAN: Continue patient's home medication. We will adjust the patient's blood pressure medications accordingly. We will continue to monitor this patient. monitor h and h cont on synthroid shawanda rn Nutritional Asmnt/Malnutr-PDOC - Dietary Evaluation Malnutrition Findings (Please click <Entered> for more info): Nutritional Asmnt/Malnutrition Start: 06/04/18 15: 15 Text: Status: Complete Freq: Protocol: Document 06/04/18 15:15 LCHENG (Rec: 06/04/18 15:30 [email or web address]) Nutritional Asmnt/Malnutrition Patient General Information Nutritional Screening Low Risk Diagnosis psychosis, dementia Pertinent Medical Hx/Surgical Hx HTN, dementia Subjective Information Pt seen eating lunch in dining room, confused, asking where her father is. Per EMR, PO itnake 75-100%. Current Diet Order/ Nutrition Support regular Pertinent Medications lipitor, colace, synthroid, theragran, seroquel Pertinent Labs 05/31 BUN 33, Ca 8.4, Clb 3.3 Nutritional Hx/Data Height 1.65 m Height (Calculated Centimeters) 165.1 Current Weight (lbs) 68.039 kg Weight (Calculated Kilograms) 68.0 Weight (Calculated Grams) 20965.9 [place] Body Weight 130 Body Mass Index (BMI) 25.0 Weight Status Overweight GI Symptoms GI Symptoms None Last BM 06/01 x 2 Difficult in: None Skin Integrity/Comment: intact Current %PO Good (75-100%) Estimated Nutritional Goals BEE in Kcals: Using Current wt Calories/Kcals/Kg 23-27 Kcals Calculated 7513-5555 Protein: Using Current wt Protein g/k Protein Calculated 68 Fluid: ml 1564-1836ml (1ml/kcal) Nutritional Problem No current Nutrition Prob Problem N/A Malnutrition Alert Is there a minimum of two criteria No selected? Query Text:Check all the applicable criteria. A minimum of two criteria are recommended for diagnosis of either severe or non-severe malnutrition. Malnutrition Related to Morbid Obesity Malnutrition related to morbid obesity No Intervention/Recommendation Comments 1. Continue with regular diet as ordered. 2. Monitor PO intake, wt, labs and skin integrity 3. F/U as low risk in 7 days Expected Outcomes/Goals Expected Outcomes/Goals 1. PO intake to meet at least 75% of nutritional needs. 2. Wt stability, skin to remain intact, labs to approach WNL.
[2018-06-06] MEDS ORDERED: Haloperidol Lactate 5 mg/mL 1mL Vial IM ONE (16:42)
[2018-06-06] MEDS ORDERED: Haloperidol Lactate 5 mg/mL 1mL Vial ONE (16:47)
--- NOTE | 2018-06-07 01:36 | Progress Notes ---
DATE: 06/06/2018 SUBJECTIVE: The patient is seen today on 06/06/2018, very agitated, aggressive, scratching staff, yelling, screaming, having to go into the isolation room, very confused, disoriented, scared of others, likely lashing out due to paranoia. ASSESSMENT: The patient remains symptomatic, still can be combative, ongoing concerns about impulsivity. I will be increasing dosing of Seroquel today. [facility]# [id number]
[2018-06-07] MEDS: Levothyroxine 0.025 Mg Tab PO SCH (06:36)
[2018-06-07] MEDS: Multivitamin Tab PO SCH (09:14)
--- NOTE | 2018-06-07 12:16 | Internal Medicine Prog Note ---
Internal Medicine Subjective - Subjective Patient seen and examined:: with staff, chart reviewed Patient is:: awake, verbal, interactive, agitated Per staff patient has:: no adverse event, no episodes of fall, tolerating meds Internal Medicine Objective - Results Result Diagrams: 05/31/18 12:55 05/31/18 12:55 Recent Labs: Laboratory Last Values WBC 6.9 Th/cmm (4.8-10.8) 05/31/18 12:55 RBC 3.07 Mil/cmm (3.80-5.20) L 05/31/18 12:55 Hgb 8.9 gm/dL (12-16) L 05/31/18 12:55 Hct 27.2 % (41.0-60) L 05/31/18 12:55 MCV 88.5 fl (81-100) 05/31/18 12:55 MCH 29.0 pg (27.0-31.0) 05/31/18 12:55 MCHC Differential 32.8 pg (28.0-36.0) 05/31/18 12:55 RDW 14.9 % (11.5-20.0) 05/31/18 12:55 Plt Count 250 Th/cmm (150-400) 05/31/18 12:55 MPV 7.3 fl 05/31/18 12:55 Neutrophils % 68.1 % (40.0-80.0) 05/31/18 12:55 Lymphocytes % 16.8 % (20.0-50.0) L 05/31/18 12:55 Monocytes % 14.3 % (2.0-10.0) H 05/31/18 12:55 Eosinophils % 0.2 % (0.0-5.0) 05/31/18 12:55 Basophils % 0.6 % (0.0-2.0) 05/31/18 12:55 Sodium 139 mEq/L (136-145) 05/31/18 12:55 Potassium 3.9 mEq/L (3.5-5.1) 05/31/18 12:55 Chloride 104 mEq/L (98-107) 05/31/18 12:55 Carbon Dioxide 27.6 mEq/L (21.0-31.0) 05/31/18 12:55 Anion Gap 11.3 (7.0-16.0) 05/31/18 12:55 BUN 33 mg/dL (7-25) H 05/31/18 12:55 Creatinine 1.1 mg/dL (0.6-1.2) 05/31/18 12:55 Est GFR ( Amer) TNP 05/31/18 12:55 Est GFR (Non-Af Amer) TNP 05/31/18 12:55 BUN/Creatinine Ratio 30.0 05/31/18 12:55 Glucose 108 mg/dL (70-105) H 05/31/18 12:55 Calcium 8.4 mg/dL (8.6-10.3) L 05/31/18 12:55 Total Bilirubin 0.2 mg/dL (0.3-1.0) L 05/31/18 12:55 AST 28 U/L (13-39) 05/31/18 12:55 ALT 19 U/L (7-52) 05/31/18 12:55 Alkaline Phosphatase 58 U/L (34-104) 05/31/18 12:55 Total Protein 5.7 gm/dL (6.0-8.3) L 05/31/18 12:55 Albumin 3.3 gm/dL (3.7-5.3) L 05/31/18 12:55 Globulin 2.4 gm/dL 05/31/18 12:55 Albumin/Globulin Ratio 1.4 (1.0-1.8) 05/31/18 12:55 Triglycerides 70 mg/dL (<150) 05/31/18 12:55 Cholesterol 123 mg/dL (<200) 05/31/18 12:55 LDL Cholesterol Direct 63 mg/dL (75-193) L 05/31/18 12:55 HDL Cholesterol 45 mg/dL (23-92) 05/31/18 12:55 TSH 3.69 uIU/ml (0.34-5.60) 05/31/18 12:55 Urine Source CLEAN C 05/31/18 14:06 Urine Color STRAW 05/31/18 14:06 Urine Clarity CLEAR (CLEAR) 05/31/18 14:06 Urine pH 6.0 (4.6 - 8.0) 05/31/18 14:06 Ur Specific [place] 1.010 (1.005-1.030) 05/31/18 14:06 Urine Protein NEGATIVE mg/dL (NEGATIVE) 05/31/18 14:06 Urine Glucose (UA) NEGATIVE mg/dL (NEGATIVE) 05/31/18 14:06 Urine Ketones NEGATIVE mg/dL (NEGATIVE) 05/31/18 14:06 Urine Blood NEGATIVE (NEGATIVE) 05/31/18 14:06 Urine Nitrate NEGATIVE (NEGATIVE) 05/31/18 14:06 Urine Bilirubin NEGATIVE (NEGATIVE) 05/31/18 14:06 Urine Urobilinogen 0.2 E.U./dL (0.2 - 1.0) 05/31/18 14:06 Ur Leukocyte Esterase NEGATIVE (NEGATIVE) 05/31/18 14:06 RPR NONREACTIVE (NONREACTIVE) 05/31/18 12:55 - Physical Exam Vitals and I&O: Vital Signs Temp 97.1 F 06/07/18 06:34 Pulse 70 06/07/18 06:34 Resp 18 06/07/18 06:34 BP 140/75 06/07/18 06:34 Pulse Ox 98 06/07/18 06:34 Intake & Output 06/06/18 06/07/18 06/07/18 18:59 06:59 18:59 Intake Total 120 Balance 120 Intake: Oral 120 Other: # Voids 3 Active Medications: Current Medications Atorvastatin Calcium (Lipitor) 40 mg PO DAILY [facility] Stop: 07/31/18 08:59 Last Admin: 06/07/18 09:13 Dose: 40 mg Citalopram Hydrobromide (Celexa) 10 mg PO DAILY [facility] Stop: 07/31/18 08:59 Last Admin: 06/07/18 09:13 Dose: 10 mg Divalproex Sodium (Depakote Dr) 500 mg PO TID [facility]; Protocol Stop: 07/31/18 08:59 Last Admin: 06/07/18 09:13 Dose: 500 mg Docusate Sodium (Colace) 100 mg PO DAILY PRN PRN Reason: Constipation Stop: 07/31/18 00:21 Donepezil HCl (Aricept) 5 mg PO DAILY [facility] Stop: 07/31/18 08:59 Last Admin: 06/07/18 09:13 Dose: 5 mg Levothyroxine Sodium (Synthroid) 0.025 mg PO QDAC [facility] Stop: 07/31/18 07:29 Last Admin: 06/07/18 06:36 Dose: 0.025 mg Lorazepam (Ativan) 0.5 mg PO Q6HR PRN; Protocol PRN Reason: Anxiety Stop: 07/31/18 00:21 Last Admin: 06/06/18 15:56 Dose: 0.5 mg Multivitamins/Vitamin C (Theragran) 1 tab PO DAILY [facility] Stop: 07/31/18 08:59 Last Admin: 06/07/18 09:14 Dose: 1 tab Quetiapine Fumarate (Seroquel) 12.5 mg PO BID [facility]; Protocol Stop: 08/05/18 16:59 Last Admin: 06/07/18 09:14 Dose: 12.5 mg Quetiapine Fumarate 50 mg/ (Quetiapine Fumarate 25 mg) 75 mg PO HS [facility] Stop: 08/05/18 20:59 Last Admin: 06/06/18 21:46 Dose: 75 mg General: demented HEENT: NC/AT, PERRLA Neck: Supple Lungs: CTAB Cardiovascular: RRR, Normal S1, Normal S2, without murmur Abdomen: soft, non-tender, non-distended, positive bowel sound Extremities: excoriation Neurological: no change Internal Medicine Assmt/Plan - Assessment Assessment: - Assessment Assessment: ASSESSMENT: Agitation, hypertension, dementia. anemia ri hypothroidism - - Plan Plan: Plan: PLAN: Continue patient's home medication. We will adjust the patient's blood pressure medications accordingly. We will continue to monitor this patient. monitor h and h cont on synthroid shawanda rn Nutritional Asmnt/Malnutr-PDOC - Dietary Evaluation Malnutrition Findings (Please click <Entered> for more info): Nutritional Asmnt/Malnutrition Start: 06/04/18 15: 15 Text: Status: Complete Freq: Protocol: Document 06/04/18 15:15 LCHENG (Rec: 06/04/18 15:30 [email or web address] [email or web address]) Nutritional Asmnt/Malnutrition Patient General Information Nutritional Screening Low Risk Diagnosis psychosis, dementia Pertinent Medical Hx/Surgical Hx HTN, dementia Subjective Information Pt seen eating lunch in dining room, confused, asking where her father is. Per EMR, PO itnake 75-100%. Current Diet Order/ Nutrition Support regular Pertinent Medications lipitor, colace, synthroid, theragran, seroquel Pertinent Labs 4/25 BUN 33, Ca 8.4, Clb 3.3 Nutritional Hx/Data Height 1.65 m Height (Calculated Centimeters) 165.1 Current Weight (lbs) 68.039 kg Weight (Calculated Kilograms) 68.0 Weight (Calculated Grams) 33776.9 [place] Body Weight 130 Body Mass Index (BMI) 25.0 Weight Status Overweight GI Symptoms GI Symptoms None Last BM 06/01 x 2 Difficult in: None Skin Integrity/Comment: intact Current %PO Good (75-100%) Estimated Nutritional Goals BEE in Kcals: Using Current wt Calories/Kcals/Kg 23-27 Kcals Calculated 1482-0717 Protein: Using Current wt Protein g/k Protein Calculated 68 Fluid: ml 1564-1836ml (1ml/kcal) Nutritional Problem No current Nutrition Prob Problem N/A Malnutrition Alert Is there a minimum of two criteria No selected? Query Text:Check all the applicable criteria. A minimum of two criteria are recommended for diagnosis of either severe or non-severe malnutrition. Malnutrition Related to Morbid Obesity Malnutrition related to morbid obesity No Intervention/Recommendation Comments 1. Continue with regular diet as ordered. 2. Monitor PO intake, wt, labs and skin integrity 3. F/U as low risk in 7 days Expected Outcomes/Goals Expected Outcomes/Goals 1. PO intake to meet at least 75% of nutritional needs. 2. Wt stability, skin to remain intact, labs to approach WNL.
[2018-06-08] MEDS: Levothyroxine 0.025 Mg Tab PO SCH (06:40)
--- NOTE | 2018-06-08 08:27 | Progress Notes ---
DATE: 06/07/2018 SUBJECTIVE: The patient remains agitated, aggressive. She was yelling and screaming yesterday, requiring emergency medications yesterday, Haldol cocktail, asleep on exam, very tired appearing. Sleeping, but arousable, very confused, forgetful, appearing somewhat sedated right now, possibly over sedated. ASSESSMENT: The patient remains symptomatic, highly impulsive, unpredictable, yelling, screaming, agitated, scratching. I will be daytime dosing of Seroquel. The patient remains symptomatic with the potential for violence. JOB# [id number]
[2018-06-08] MEDS: Multivitamin Tab PO SCH (08:43)
--- NOTE | 2018-06-08 12:02 | Internal Medicine Prog Note ---
Internal Medicine Subjective - Subjective Patient seen and examined:: with staff, chart reviewed Patient is:: awake, verbal, interactive, agitated Per staff patient has:: no adverse event, no episodes of fall, tolerating meds Internal Medicine Objective - Results Result Diagrams: 05/31/18 12:55 05/31/18 12:55 Recent Labs: Laboratory Last Values WBC 6.9 Th/cmm (4.8-10.8) 05/31/18 12:55 RBC 3.07 Mil/cmm (3.80-5.20) L 05/31/18 12:55 Hgb 8.9 gm/dL (12-16) L 05/31/18 12:55 Hct 27.2 % (41.0-60) L 05/31/18 12:55 MCV 88.5 fl (81-100) 05/31/18 12:55 MCH 29.0 pg (27.0-31.0) 05/31/18 12:55 MCHC Differential 32.8 pg (28.0-36.0) 05/31/18 12:55 RDW 14.9 % (11.5-20.0) 05/31/18 12:55 Plt Count 250 Th/cmm (150-400) 05/31/18 12:55 MPV 7.3 fl 05/31/18 12:55 Neutrophils % 68.1 % (40.0-80.0) 05/31/18 12:55 Lymphocytes % 16.8 % (20.0-50.0) L 05/31/18 12:55 Monocytes % 14.3 % (2.0-10.0) H 05/31/18 12:55 Eosinophils % 0.2 % (0.0-5.0) 05/31/18 12:55 Basophils % 0.6 % (0.0-2.0) 05/31/18 12:55 Sodium 139 mEq/L (136-145) 05/31/18 12:55 Potassium 3.9 mEq/L (3.5-5.1) 05/31/18 12:55 Chloride 104 mEq/L (98-107) 05/31/18 12:55 Carbon Dioxide 27.6 mEq/L (21.0-31.0) 05/31/18 12:55 Anion Gap 11.3 (7.0-16.0) 05/31/18 12:55 BUN 33 mg/dL (7-25) H 05/31/18 12:55 Creatinine 1.1 mg/dL (0.6-1.2) 05/31/18 12:55 Est GFR ( Amer) TNP 05/31/18 12:55 Est GFR (Non-Af Amer) TNP 05/31/18 12:55 BUN/Creatinine Ratio 30.0 05/31/18 12:55 Glucose 108 mg/dL (70-105) H 05/31/18 12:55 Calcium 8.4 mg/dL (8.6-10.3) L 05/31/18 12:55 Total Bilirubin 0.2 mg/dL (0.3-1.0) L 05/31/18 12:55 AST 28 U/L (13-39) 05/31/18 12:55 ALT 19 U/L (7-52) 05/31/18 12:55 Alkaline Phosphatase 58 U/L (34-104) 05/31/18 12:55 Total Protein 5.7 gm/dL (6.0-8.3) L 05/31/18 12:55 Albumin 3.3 gm/dL (3.7-5.3) L 05/31/18 12:55 Globulin 2.4 gm/dL 05/31/18 12:55 Albumin/Globulin Ratio 1.4 (1.0-1.8) 05/31/18 12:55 Triglycerides 70 mg/dL (<150) 05/31/18 12:55 Cholesterol 123 mg/dL (<200) 05/31/18 12:55 LDL Cholesterol Direct 63 mg/dL (75-193) L 05/31/18 12:55 HDL Cholesterol 45 mg/dL (23-92) 05/31/18 12:55 TSH 3.69 uIU/ml (0.34-5.60) 05/31/18 12:55 Urine Source CLEAN C 05/31/18 14:06 Urine Color STRAW 05/31/18 14:06 Urine Clarity CLEAR (CLEAR) 05/31/18 14:06 Urine pH 6.0 (4.6 - 8.0) 05/31/18 14:06 Ur Specific [place] 1.010 (1.005-1.030) 05/31/18 14:06 Urine Protein NEGATIVE mg/dL (NEGATIVE) 05/31/18 14:06 Urine Glucose (UA) NEGATIVE mg/dL (NEGATIVE) 05/31/18 14:06 Urine Ketones NEGATIVE mg/dL (NEGATIVE) 05/31/18 14:06 Urine Blood NEGATIVE (NEGATIVE) 05/31/18 14:06 Urine Nitrate NEGATIVE (NEGATIVE) 05/31/18 14:06 Urine Bilirubin NEGATIVE (NEGATIVE) 05/31/18 14:06 Urine Urobilinogen 0.2 E.U./dL (0.2 - 1.0) 05/31/18 14:06 Ur Leukocyte Esterase NEGATIVE (NEGATIVE) 05/31/18 14:06 RPR NONREACTIVE (NONREACTIVE) 05/31/18 12:55 - Physical Exam Vitals and I&O: Vital Signs Temp 98.4 F 06/08/18 05:59 Pulse 70 06/08/18 05:59 Resp 19 06/08/18 05:59 BP 110/60 06/08/18 05:59 Pulse Ox 95 06/08/18 05:59 Intake & Output 06/07/18 06/08/18 06/08/18 18:59 06:59 18:59 Intake Total 1000 240 Balance 1000 240 Intake: Oral 1000 240 Other: # Voids 3 2 # Bowel Movements 1 0 Active Medications: Current Medications Atorvastatin Calcium (Lipitor) 40 mg PO DAILY [facility] Stop: 07/31/18 08:59 Last Admin: 06/08/18 08:44 Dose: 40 mg Citalopram Hydrobromide (Celexa) 10 mg PO DAILY [facility] Stop: 07/31/18 08:59 Last Admin: 06/08/18 08:43 Dose: 10 mg Divalproex Sodium (Depakote Dr) 500 mg PO TID [facility]; Protocol Stop: 07/31/18 08:59 Last Admin: 06/08/18 08:44 Dose: 500 mg Docusate Sodium (Colace) 100 mg PO DAILY PRN PRN Reason: Constipation Stop: 07/31/18 00:21 Donepezil HCl (Aricept) 5 mg PO DAILY [facility] Stop: 07/31/18 08:59 Last Admin: 06/08/18 08:44 Dose: 5 mg Levothyroxine Sodium (Synthroid) 0.025 mg PO QDAC [facility] Stop: 07/31/18 07:29 Last Admin: 06/08/18 06:40 Dose: 0.025 mg Lorazepam (Ativan) 0.5 mg PO Q6HR PRN; Protocol PRN Reason: Anxiety Stop: 07/31/18 00:21 Last Admin: 06/06/18 15:56 Dose: 0.5 mg Multivitamins/Vitamin C (Theragran) 1 tab PO DAILY [facility] Stop: 07/31/18 08:59 Last Admin: 06/08/18 08:43 Dose: 1 tab Quetiapine Fumarate 50 mg/ (Quetiapine Fumarate 25 mg) 75 mg PO HS [facility] Stop: 08/05/18 20:59 Last Admin: 06/07/18 21:14 Dose: Not Given Quetiapine Fumarate (Seroquel) 12.5 mg PO DAILY [facility]; Protocol Stop: 08/07/18 08:59 Last Admin: 06/08/18 08:44 Dose: 12.5 mg General: demented HEENT: NC/AT, PERRLA Neck: Supple Lungs: CTAB Cardiovascular: RRR, Normal S1, Normal S2, without murmur Abdomen: soft, non-tender, non-distended, positive bowel sound Extremities: excoriation Neurological: no change Internal Medicine Assmt/Plan - Assessment Assessment: - Assessment Assessment: ASSESSMENT: Agitation, hypertension, dementia. anemia ri hypothroidism - - Plan Plan: Plan: PLAN: Continue patient's home medication. We will adjust the patient's blood pressure medications accordingly. We will continue to monitor this patient. monitor h and h cont on synthroid shawanda rn Nutritional Asmnt/Malnutr-PDOC - Dietary Evaluation Malnutrition Findings (Please click <Entered> for more info): Nutritional Asmnt/Malnutrition Start: 06/04/18 15: 15 Text: Status: Complete Freq: Protocol: Document 06/04/18 15:15 LCHENG (Rec: 06/04/18 15:30 LCJULIOG [email or web address]) Nutritional Asmnt/Malnutrition Patient General Information Nutritional Screening Low Risk Diagnosis psychosis, dementia Pertinent Medical Hx/Surgical Hx HTN, dementia Subjective Information Pt seen eating lunch in dining room, confused, asking where her father is. Per EMR, PO itnake 75-100%. Current Diet Order/ Nutrition Support regular Pertinent Medications lipitor, colace, synthroid, theragran, seroquel Pertinent Labs 05/31 BUN 33, Ca 8.4, Clb 3.3 Nutritional Hx/Data Height 1.65 m Height (Calculated Centimeters) 165.1 Current Weight (lbs) 68.039 kg Weight (Calculated Kilograms) 68.0 Weight (Calculated Grams) 05617.9 [place] Body Weight 130 Body Mass Index (BMI) 25.0 Weight Status Overweight GI Symptoms GI Symptoms None Last BM 06/01 x 2 Difficult in: None Skin Integrity/Comment: intact Current %PO Good (75-100%) Estimated Nutritional Goals BEE in Kcals: Using Current wt Calories/Kcals/Kg 23-27 Kcals Calculated 5205-9655 Protein: Using Current wt Protein g/k Protein Calculated 68 Fluid: ml 1564-1836ml (1ml/kcal) Nutritional Problem No current Nutrition Prob Problem N/A Malnutrition Alert Is there a minimum of two criteria No selected? Query Text:Check all the applicable criteria. A minimum of two criteria are recommended for diagnosis of either severe or non-severe malnutrition. Malnutrition Related to Morbid Obesity Malnutrition related to morbid obesity No Intervention/Recommendation Comments 1. Continue with regular diet as ordered. 2. Monitor PO intake, wt, labs and skin integrity 3. F/U as low risk in 7 days Expected Outcomes/Goals Expected Outcomes/Goals 1. PO intake to meet at least 75% of nutritional needs. 2. Wt stability, skin to remain intact, labs to approach WNL.
[2018-06-09] MEDS: Levothyroxine 0.025 Mg Tab PO SCH (06:30)
[2018-06-09] MEDS: Multivitamin Tab PO SCH (09:45)
--- NOTE | 2018-06-09 12:13 | Internal Medicine Prog Note ---
Internal Medicine Subjective - Subjective Patient seen and examined:: with staff, chart reviewed Patient is:: awake, verbal, interactive, agitated Per staff patient has:: no adverse event, no episodes of fall, tolerating meds Internal Medicine Objective - Results Result Diagrams: 05/31/18 12:55 05/31/18 12:55 Recent Labs: Laboratory Last Values WBC 6.9 Th/cmm (4.8-10.8) 05/31/18 12:55 RBC 3.07 Mil/cmm (3.80-5.20) L 05/31/18 12:55 Hgb 8.9 gm/dL (12-16) L 05/31/18 12:55 Hct 27.2 % (41.0-60) L 05/31/18 12:55 MCV 88.5 fl (81-100) 05/31/18 12:55 MCH 29.0 pg (27.0-31.0) 05/31/18 12:55 MCHC Differential 32.8 pg (28.0-36.0) 05/31/18 12:55 RDW 14.9 % (11.5-20.0) 05/31/18 12:55 Plt Count 250 Th/cmm (150-400) 05/31/18 12:55 MPV 7.3 fl 05/31/18 12:55 Neutrophils % 68.1 % (40.0-80.0) 05/31/18 12:55 Lymphocytes % 16.8 % (20.0-50.0) L 05/31/18 12:55 Monocytes % 14.3 % (2.0-10.0) H 05/31/18 12:55 Eosinophils % 0.2 % (0.0-5.0) 05/31/18 12:55 Basophils % 0.6 % (0.0-2.0) 05/31/18 12:55 Sodium 139 mEq/L (136-145) 05/31/18 12:55 Potassium 3.9 mEq/L (3.5-5.1) 05/31/18 12:55 Chloride 104 mEq/L (98-107) 05/31/18 12:55 Carbon Dioxide 27.6 mEq/L (21.0-31.0) 05/31/18 12:55 Anion Gap 11.3 (7.0-16.0) 05/31/18 12:55 BUN 33 mg/dL (7-25) H 05/31/18 12:55 Creatinine 1.1 mg/dL (0.6-1.2) 05/31/18 12:55 Est GFR ( Amer) TNP 05/31/18 12:55 Est GFR (Non-Af Amer) TNP 05/31/18 12:55 BUN/Creatinine Ratio 30.0 05/31/18 12:55 Glucose 108 mg/dL (70-105) H 05/31/18 12:55 Calcium 8.4 mg/dL (8.6-10.3) L 05/31/18 12:55 Total Bilirubin 0.2 mg/dL (0.3-1.0) L 05/31/18 12:55 AST 28 U/L (13-39) 05/31/18 12:55 ALT 19 U/L (7-52) 05/31/18 12:55 Alkaline Phosphatase 58 U/L (34-104) 05/31/18 12:55 Total Protein 5.7 gm/dL (6.0-8.3) L 05/31/18 12:55 Albumin 3.3 gm/dL (3.7-5.3) L 05/31/18 12:55 Globulin 2.4 gm/dL 05/31/18 12:55 Albumin/Globulin Ratio 1.4 (1.0-1.8) 05/31/18 12:55 Triglycerides 70 mg/dL (<150) 05/31/18 12:55 Cholesterol 123 mg/dL (<200) 05/31/18 12:55 LDL Cholesterol Direct 63 mg/dL (75-193) L 05/31/18 12:55 HDL Cholesterol 45 mg/dL (23-92) 05/31/18 12:55 TSH 3.69 uIU/ml (0.34-5.60) 05/31/18 12:55 Urine Source CLEAN C 05/31/18 14:06 Urine Color STRAW 05/31/18 14:06 Urine Clarity CLEAR (CLEAR) 05/31/18 14:06 Urine pH 6.0 (4.6 - 8.0) 05/31/18 14:06 Ur Specific [place] 1.010 (1.005-1.030) 05/31/18 14:06 Urine Protein NEGATIVE mg/dL (NEGATIVE) 05/31/18 14:06 Urine Glucose (UA) NEGATIVE mg/dL (NEGATIVE) 05/31/18 14:06 Urine Ketones NEGATIVE mg/dL (NEGATIVE) 05/31/18 14:06 Urine Blood NEGATIVE (NEGATIVE) 05/31/18 14:06 Urine Nitrate NEGATIVE (NEGATIVE) 05/31/18 14:06 Urine Bilirubin NEGATIVE (NEGATIVE) 05/31/18 14:06 Urine Urobilinogen 0.2 E.U./dL (0.2 - 1.0) 05/31/18 14:06 Ur Leukocyte Esterase NEGATIVE (NEGATIVE) 05/31/18 14:06 RPR NONREACTIVE (NONREACTIVE) 05/31/18 12:55 - Physical Exam Vitals and I&O: Vital Signs Temp 98.8 F 06/09/18 05:49 Pulse 76 06/09/18 05:49 Resp 20 06/09/18 05:49 BP 132/92 06/09/18 05:49 Pulse Ox 98 06/09/18 05:49 Intake & Output 06/08/18 06/09/18 06/09/18 18:59 06:59 18:59 Intake Total 900 120 Balance 900 120 Intake: Oral 900 120 Other: # Voids 4 2 # Bowel Movements 1 0 Active Medications: Current Medications Atorvastatin Calcium (Lipitor) 40 mg PO DAILY [facility] Stop: 07/31/18 08:59 Last Admin: 06/09/18 09:42 Dose: 40 mg Citalopram Hydrobromide (Celexa) 10 mg PO DAILY [facility] Stop: 07/31/18 08:59 Last Admin: 06/09/18 09:43 Dose: 10 mg Divalproex Sodium (Depakote Dr) 500 mg PO TID [facility]; Protocol Stop: 07/31/18 08:59 Last Admin: 06/09/18 09:44 Dose: 500 mg Docusate Sodium (Colace) 100 mg PO DAILY PRN PRN Reason: Constipation Stop: 07/31/18 00:21 Donepezil HCl (Aricept) 5 mg PO DAILY [facility] Stop: 07/31/18 08:59 Last Admin: 06/09/18 09:45 Dose: 5 mg Levothyroxine Sodium (Synthroid) 0.025 mg PO QDAC [facility] Stop: 07/31/18 07:29 Last Admin: 06/09/18 06:30 Dose: 0.025 mg Lorazepam (Ativan) 0.5 mg PO Q6HR PRN; Protocol PRN Reason: Anxiety Stop: 07/31/18 00:21 Last Admin: 06/09/18 06:25 Dose: 0.5 mg Multivitamins/Vitamin C (Theragran) 1 tab PO DAILY [facility] Stop: 07/31/18 08:59 Last Admin: 06/09/18 09:45 Dose: 1 tab Quetiapine Fumarate 50 mg/ (Quetiapine Fumarate 25 mg) 75 mg PO HS [facility] Stop: 08/05/18 20:59 Last Admin: 06/08/18 20:09 Dose: 75 mg Quetiapine Fumarate (Seroquel) 12.5 mg PO DAILY [facility]; Protocol Stop: 08/07/18 08:59 Last Admin: 06/09/18 09:45 Dose: 12.5 mg General: demented HEENT: NC/AT, PERRLA Neck: Supple Lungs: CTAB Cardiovascular: RRR, Normal S1, Normal S2, without murmur Abdomen: soft, non-tender, non-distended, positive bowel sound Extremities: excoriation Neurological: no change Internal Medicine Assmt/Plan - Assessment Assessment: - Assessment Assessment: ASSESSMENT: Agitation, hypertension, dementia. anemia ri hypothroidism - - Plan Plan: Plan: PLAN: Continue patient's home medication. We will adjust the patient's blood pressure medications accordingly. We will continue to monitor this patient. monitor h and h cont on synthroid shawanda rn Nutritional Asmnt/Malnutr-PDOC - Dietary Evaluation Malnutrition Findings (Please click <Entered> for more info): Nutritional Asmnt/Malnutrition Start: 06/04/18 15: 15 Text: Status: Complete Freq: Protocol: Document 06/04/18 15:15 LCHENG (Rec: 06/04/18 15:30 LCJULIOG [email or web address]) Nutritional Asmnt/Malnutrition Patient General Information Nutritional Screening Low Risk Diagnosis psychosis, dementia Pertinent Medical Hx/Surgical Hx HTN, dementia Subjective Information Pt seen eating lunch in dining room, confused, asking where her father is. Per EMR, PO itnake 75-100%. Current Diet Order/ Nutrition Support regular Pertinent Medications lipitor, colace, synthroid, theragran, seroquel Pertinent Labs 05/31 BUN 33, Ca 8.4, Clb 3.3 Nutritional Hx/Data Height 1.65 m Height (Calculated Centimeters) 165.1 Current Weight (lbs) 68.039 kg Weight (Calculated Kilograms) 68.0 Weight (Calculated Grams) 91664.9 [place] Body Weight 130 Body Mass Index (BMI) 25.0 Weight Status Overweight GI Symptoms GI Symptoms None Last BM 06/01 x 2 Difficult in: None Skin Integrity/Comment: intact Current %PO Good (75-100%) Estimated Nutritional Goals BEE in Kcals: Using Current wt Calories/Kcals/Kg 23-27 Kcals Calculated 5024-1151 Protein: Using Current wt Protein g/k Protein Calculated 68 Fluid: ml 1564-1836ml (1ml/kcal) Nutritional Problem No current Nutrition Prob Problem N/A Malnutrition Alert Is there a minimum of two criteria No selected? Query Text:Check all the applicable criteria. A minimum of two criteria are recommended for diagnosis of either severe or non-severe malnutrition. Malnutrition Related to Morbid Obesity Malnutrition related to morbid obesity No Intervention/Recommendation Comments 1. Continue with regular diet as ordered. 2. Monitor PO intake, wt, labs and skin integrity 3. F/U as low risk in 7 days Expected Outcomes/Goals Expected Outcomes/Goals 1. PO intake to meet at least 75% of nutritional needs. 2. Wt stability, skin to remain intact, labs to approach WNL.
--- NOTE | 2018-06-09 17:58 | Progress Notes ---
DATE: 06/08/2018 SUBJECTIVE: The patient in a Cinda chair, very confused, disoriented, still unruly, very impulsive, unpredictable ____ medications since being hospitalized. Currently gravely disabled. Unable to care for basic needs given the extent and severity of dementia, cognitive decline, still with episodes of yelling and screaming. PLAN: We will continue to monitor ongoing concerns about her safety and safety of others. [facility]# [id number]
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
[2018-06-10] MEDS: Levothyroxine 0.025 Mg Tab PO SCH (06:32)
[2018-06-10] MEDS: Multivitamin Tab PO SCH (08:20)
--- NOTE | 2018-06-10 11:43 | Internal Medicine Prog Note ---
Internal Medicine Subjective - Subjective Patient seen and examined:: with staff, chart reviewed Patient is:: awake, verbal, interactive, agitated Per staff patient has:: no adverse event, no episodes of fall, tolerating meds Internal Medicine Objective - Results Result Diagrams: 05/31/18 12:55 05/31/18 12:55 Recent Labs: Laboratory Last Values WBC 6.9 Th/cmm (4.8-10.8) 05/31/18 12:55 RBC 3.07 Mil/cmm (3.80-5.20) L 05/31/18 12:55 Hgb 8.9 gm/dL (12-16) L 05/31/18 12:55 Hct 27.2 % (41.0-60) L 05/31/18 12:55 MCV 88.5 fl (81-100) 05/31/18 12:55 MCH 29.0 pg (27.0-31.0) 05/31/18 12:55 MCHC Differential 32.8 pg (28.0-36.0) 05/31/18 12:55 RDW 14.9 % (11.5-20.0) 05/31/18 12:55 Plt Count 250 Th/cmm (150-400) 05/31/18 12:55 MPV 7.3 fl 05/31/18 12:55 Neutrophils % 68.1 % (40.0-80.0) 05/31/18 12:55 Lymphocytes % 16.8 % (20.0-50.0) L 05/31/18 12:55 Monocytes % 14.3 % (2.0-10.0) H 05/31/18 12:55 Eosinophils % 0.2 % (0.0-5.0) 05/31/18 12:55 Basophils % 0.6 % (0.0-2.0) 05/31/18 12:55 Sodium 139 mEq/L (136-145) 05/31/18 12:55 Potassium 3.9 mEq/L (3.5-5.1) 05/31/18 12:55 Chloride 104 mEq/L (98-107) 05/31/18 12:55 Carbon Dioxide 27.6 mEq/L (21.0-31.0) 05/31/18 12:55 Anion Gap 11.3 (7.0-16.0) 05/31/18 12:55 BUN 33 mg/dL (7-25) H 05/31/18 12:55 Creatinine 1.1 mg/dL (0.6-1.2) 05/31/18 12:55 Est GFR ( Amer) TNP 05/31/18 12:55 Est GFR (Non-Af Amer) TNP 05/31/18 12:55 BUN/Creatinine Ratio 30.0 05/31/18 12:55 Glucose 108 mg/dL (70-105) H 05/31/18 12:55 Calcium 8.4 mg/dL (8.6-10.3) L 05/31/18 12:55 Total Bilirubin 0.2 mg/dL (0.3-1.0) L 05/31/18 12:55 AST 28 U/L (13-39) 05/31/18 12:55 ALT 19 U/L (7-52) 05/31/18 12:55 Alkaline Phosphatase 58 U/L (34-104) 05/31/18 12:55 Total Protein 5.7 gm/dL (6.0-8.3) L 05/31/18 12:55 Albumin 3.3 gm/dL (3.7-5.3) L 05/31/18 12:55 Globulin 2.4 gm/dL 05/31/18 12:55 Albumin/Globulin Ratio 1.4 (1.0-1.8) 05/31/18 12:55 Triglycerides 70 mg/dL (<150) 05/31/18 12:55 Cholesterol 123 mg/dL (<200) 05/31/18 12:55 LDL Cholesterol Direct 63 mg/dL (75-193) L 05/31/18 12:55 HDL Cholesterol 45 mg/dL (23-92) 05/31/18 12:55 TSH 3.69 uIU/ml (0.34-5.60) 05/31/18 12:55 Urine Source CLEAN C 05/31/18 14:06 Urine Color STRAW 05/31/18 14:06 Urine Clarity CLEAR (CLEAR) 05/31/18 14:06 Urine pH 6.0 (4.6 - 8.0) 05/31/18 14:06 Ur Specific [place] 1.010 (1.005-1.030) 05/31/18 14:06 Urine Protein NEGATIVE mg/dL (NEGATIVE) 05/31/18 14:06 Urine Glucose (UA) NEGATIVE mg/dL (NEGATIVE) 05/31/18 14:06 Urine Ketones NEGATIVE mg/dL (NEGATIVE) 05/31/18 14:06 Urine Blood NEGATIVE (NEGATIVE) 05/31/18 14:06 Urine Nitrate NEGATIVE (NEGATIVE) 05/31/18 14:06 Urine Bilirubin NEGATIVE (NEGATIVE) 05/31/18 14:06 Urine Urobilinogen 0.2 E.U./dL (0.2 - 1.0) 05/31/18 14:06 Ur Leukocyte Esterase NEGATIVE (NEGATIVE) 05/31/18 14:06 RPR NONREACTIVE (NONREACTIVE) 05/31/18 12:55 - Physical Exam Vitals and I&O: Vital Signs Temp 97.4 F 06/10/18 06:19 Pulse 74 06/10/18 06:19 Resp 19 06/10/18 06:19 BP 116/80 06/10/18 06:19 Pulse Ox 96 06/10/18 06:19 Intake & Output 06/09/18 06/10/18 06/10/18 18:59 06:59 18:59 Intake Total 800 110 Balance 800 110 Intake: Oral 800 110 Other: # Voids 3 2 # Bowel Movements 1 0 Active Medications: Current Medications Atorvastatin Calcium (Lipitor) 40 mg PO DAILY [facility] Stop: 07/31/18 08:59 Last Admin: 06/10/18 08:15 Dose: 40 mg Citalopram Hydrobromide (Celexa) 10 mg PO DAILY [facility] Stop: 07/31/18 08:59 Last Admin: 06/10/18 08:17 Dose: 10 mg Divalproex Sodium (Depakote Dr) 500 mg PO TID [facility]; Protocol Stop: 07/31/18 08:59 Last Admin: 06/10/18 08:18 Dose: 500 mg Docusate Sodium (Colace) 100 mg PO DAILY PRN PRN Reason: Constipation Stop: 07/31/18 00:21 Donepezil HCl (Aricept) 5 mg PO DAILY [facility] Stop: 07/31/18 08:59 Last Admin: 06/10/18 08:19 Dose: 5 mg Levothyroxine Sodium (Synthroid) 0.025 mg PO QDAC [facility] Stop: 07/31/18 07:29 Last Admin: 06/10/18 06:32 Dose: 0.025 mg Lorazepam (Ativan) 0.5 mg PO Q6HR PRN; Protocol PRN Reason: Anxiety Stop: 07/31/18 00:21 Last Admin: 06/09/18 06:25 Dose: 0.5 mg Multivitamins/Vitamin C (Theragran) 1 tab PO DAILY [facility] Stop: 07/31/18 08:59 Last Admin: 06/10/18 08:20 Dose: 1 tab Quetiapine Fumarate 50 mg/ (Quetiapine Fumarate 25 mg) 75 mg PO HS [facility] Stop: 08/05/18 20:59 Last Admin: 06/09/18 20:44 Dose: 75 mg Quetiapine Fumarate (Seroquel) 12.5 mg PO DAILY [facility]; Protocol Stop: 08/07/18 08:59 Last Admin: 06/10/18 08:20 Dose: 12.5 mg General: demented HEENT: NC/AT, PERRLA Neck: Supple Lungs: CTAB Cardiovascular: RRR, Normal S1, Normal S2, without murmur Abdomen: soft, non-tender, non-distended, positive bowel sound Extremities: excoriation Neurological: no change Internal Medicine Assmt/Plan - Assessment Assessment: - Assessment Assessment: ASSESSMENT: Agitation, hypertension, dementia. anemia ri hypothroidism - - Plan Plan: Plan: PLAN: Continue patient's home medication. We will adjust the patient's blood pressure medications accordingly. We will continue to monitor this patient. monitor h and h cont on synthroid shawanda rn Nutritional Asmnt/Malnutr-PDOC - Dietary Evaluation Malnutrition Findings (Please click <Entered> for more info): Nutritional Asmnt/Malnutrition Start: 06/04/18 15: 15 Text: Status: Complete Freq: Protocol: Document 06/04/18 15:15 LCHENG (Rec: 06/04/18 15:30 [email or web address] [email or web address]) Nutritional Asmnt/Malnutrition Patient General Information Nutritional Screening Low Risk Diagnosis psychosis, dementia Pertinent Medical Hx/Surgical Hx HTN, dementia Subjective Information Pt seen eating lunch in dining room, confused, asking where her father is. Per EMR, PO itnake 75-100%. Current Diet Order/ Nutrition Support regular Pertinent Medications lipitor, colace, synthroid, theragran, seroquel Pertinent Labs 05/31 BUN 33, Ca 8.4, Clb 3.3 Nutritional Hx/Data Height 1.65 m Height (Calculated Centimeters) 165.1 Current Weight (lbs) 68.039 kg Weight (Calculated Kilograms) 68.0 Weight (Calculated Grams) 78428.9 [place] Body Weight 130 Body Mass Index (BMI) 25.0 Weight Status Overweight GI Symptoms GI Symptoms None Last BM 06/01 x 2 Difficult in: None Skin Integrity/Comment: intact Current %PO Good (75-100%) Estimated Nutritional Goals BEE in Kcals: Using Current wt Calories/Kcals/Kg 23-27 Kcals Calculated 2741-1699 Protein: Using Current wt Protein g/k Protein Calculated 68 Fluid: ml 1564-1836ml (1ml/kcal) Nutritional Problem No current Nutrition Prob Problem N/A Malnutrition Alert Is there a minimum of two criteria No selected? Query Text:Check all the applicable criteria. A minimum of two criteria are recommended for diagnosis of either severe or non-severe malnutrition. Malnutrition Related to Morbid Obesity Malnutrition related to morbid obesity No Intervention/Recommendation Comments 1. Continue with regular diet as ordered. 2. Monitor PO intake, wt, labs and skin integrity 3. F/U as low risk in 7 days Expected Outcomes/Goals Expected Outcomes/Goals 1. PO intake to meet at least 75% of nutritional needs. 2. Wt stability, skin to remain intact, labs to approach WNL.
--- NOTE | 2018-06-10 22:27 | Progress Notes ---
DATE: 06/10/2018 Case was discussed with staff of the patient, reviewed records. The patient continues to be delusional. Continues to be bizarre, continue to have poor insight. Continues to have yelling and screaming, unpredictable, impulsive, needing redirection. Sleeping well, eating well. No side effects with the medication, no sedation, no nausea. We will continue to work with the patient in group therapy, milieu therapy, and adjust the medication as needed. JOB# [id number]
[2018-06-11] MEDS: Levothyroxine 0.025 Mg Tab PO SCH (06:29)
[2018-06-11] MEDS: Multivitamin Tab PO SCH (08:53)
--- NOTE | 2018-06-11 11:14 | Internal Medicine Prog Note ---
Internal Medicine Subjective - Subjective Patient seen and examined:: with staff, chart reviewed Patient is:: awake, verbal, interactive, agitated Per staff patient has:: no adverse event, no episodes of fall, tolerating meds Internal Medicine Objective - Results Result Diagrams: 05/31/18 12:55 05/31/18 12:55 Recent Labs: Laboratory Last Values WBC 6.9 Th/cmm (4.8-10.8) 05/31/18 12:55 RBC 3.07 Mil/cmm (3.80-5.20) L 05/31/18 12:55 Hgb 8.9 gm/dL (12-16) L 05/31/18 12:55 Hct 27.2 % (41.0-60) L 05/31/18 12:55 MCV 88.5 fl (81-100) 05/31/18 12:55 MCH 29.0 pg (27.0-31.0) 05/31/18 12:55 MCHC Differential 32.8 pg (28.0-36.0) 05/31/18 12:55 RDW 14.9 % (11.5-20.0) 05/31/18 12:55 Plt Count 250 Th/cmm (150-400) 05/31/18 12:55 MPV 7.3 fl 05/31/18 12:55 Neutrophils % 68.1 % (40.0-80.0) 05/31/18 12:55 Lymphocytes % 16.8 % (20.0-50.0) L 05/31/18 12:55 Monocytes % 14.3 % (2.0-10.0) H 05/31/18 12:55 Eosinophils % 0.2 % (0.0-5.0) 05/31/18 12:55 Basophils % 0.6 % (0.0-2.0) 05/31/18 12:55 Sodium 139 mEq/L (136-145) 05/31/18 12:55 Potassium 3.9 mEq/L (3.5-5.1) 05/31/18 12:55 Chloride 104 mEq/L (98-107) 05/31/18 12:55 Carbon Dioxide 27.6 mEq/L (21.0-31.0) 05/31/18 12:55 Anion Gap 11.3 (7.0-16.0) 05/31/18 12:55 BUN 33 mg/dL (7-25) H 05/31/18 12:55 Creatinine 1.1 mg/dL (0.6-1.2) 05/31/18 12:55 Est GFR ( Amer) TNP 05/31/18 12:55 Est GFR (Non-Af Amer) TNP 05/31/18 12:55 BUN/Creatinine Ratio 30.0 05/31/18 12:55 Glucose 108 mg/dL (70-105) H 05/31/18 12:55 Calcium 8.4 mg/dL (8.6-10.3) L 05/31/18 12:55 Total Bilirubin 0.2 mg/dL (0.3-1.0) L 05/31/18 12:55 AST 28 U/L (13-39) 05/31/18 12:55 ALT 19 U/L (7-52) 05/31/18 12:55 Alkaline Phosphatase 58 U/L (34-104) 05/31/18 12:55 Total Protein 5.7 gm/dL (6.0-8.3) L 05/31/18 12:55 Albumin 3.3 gm/dL (3.7-5.3) L 05/31/18 12:55 Globulin 2.4 gm/dL 05/31/18 12:55 Albumin/Globulin Ratio 1.4 (1.0-1.8) 05/31/18 12:55 Triglycerides 70 mg/dL (<150) 05/31/18 12:55 Cholesterol 123 mg/dL (<200) 05/31/18 12:55 LDL Cholesterol Direct 63 mg/dL (75-193) L 05/31/18 12:55 HDL Cholesterol 45 mg/dL (23-92) 05/31/18 12:55 TSH 3.69 uIU/ml (0.34-5.60) 05/31/18 12:55 Urine Source CLEAN C 05/31/18 14:06 Urine Color STRAW 05/31/18 14:06 Urine Clarity CLEAR (CLEAR) 05/31/18 14:06 Urine pH 6.0 (4.6 - 8.0) 05/31/18 14:06 Ur Specific [place] 1.010 (1.005-1.030) 05/31/18 14:06 Urine Protein NEGATIVE mg/dL (NEGATIVE) 05/31/18 14:06 Urine Glucose (UA) NEGATIVE mg/dL (NEGATIVE) 05/31/18 14:06 Urine Ketones NEGATIVE mg/dL (NEGATIVE) 05/31/18 14:06 Urine Blood NEGATIVE (NEGATIVE) 05/31/18 14:06 Urine Nitrate NEGATIVE (NEGATIVE) 05/31/18 14:06 Urine Bilirubin NEGATIVE (NEGATIVE) 05/31/18 14:06 Urine Urobilinogen 0.2 E.U./dL (0.2 - 1.0) 05/31/18 14:06 Ur Leukocyte Esterase NEGATIVE (NEGATIVE) 05/31/18 14:06 RPR NONREACTIVE (NONREACTIVE) 05/31/18 12:55 - Physical Exam Vitals and I&O: Vital Signs Temp 97.6 F 06/10/18 20:00 Pulse 78 06/10/18 20:00 Resp 19 06/10/18 20:00 BP 143/66 06/10/18 20:00 Pulse Ox 96 06/10/18 20:00 Intake & Output 06/10/18 06/11/18 06/11/18 18:59 06:59 18:59 Intake Total 800 120 Balance 800 120 Intake: Oral 800 120 Other: # Voids 3 3 # Bowel Movements 0 Active Medications: Current Medications Atorvastatin Calcium (Lipitor) 40 mg PO DAILY [facility] Stop: 07/31/18 08:59 Last Admin: 06/11/18 08:54 Dose: 40 mg Citalopram Hydrobromide (Celexa) 10 mg PO DAILY [facility] Stop: 07/31/18 08:59 Last Admin: 06/11/18 08:53 Dose: 10 mg Divalproex Sodium (Depakote Dr) 500 mg PO TID [facility]; Protocol Stop: 07/31/18 08:59 Last Admin: 06/11/18 08:53 Dose: 500 mg Docusate Sodium (Colace) 100 mg PO DAILY PRN PRN Reason: Constipation Stop: 07/31/18 00:21 Donepezil HCl (Aricept) 5 mg PO DAILY [facility] Stop: 07/31/18 08:59 Last Admin: 06/11/18 08:53 Dose: 5 mg Levothyroxine Sodium (Synthroid) 0.025 mg PO QDAC [facility] Stop: 07/31/18 07:29 Last Admin: 06/11/18 06:29 Dose: 0.025 mg Lorazepam (Ativan) 0.5 mg PO Q6HR PRN; Protocol PRN Reason: Anxiety Stop: 07/31/18 00:21 Last Admin: 06/11/18 08:55 Dose: 0.5 mg Multivitamins/Vitamin C (Theragran) 1 tab PO DAILY [facility] Stop: 07/31/18 08:59 Last Admin: 06/11/18 08:53 Dose: 1 tab Quetiapine Fumarate 50 mg/ (Quetiapine Fumarate 25 mg) 75 mg PO HS [facility] Stop: 08/05/18 20:59 Last Admin: 06/10/18 20:29 Dose: 75 mg Quetiapine Fumarate (Seroquel) 12.5 mg PO DAILY [facility]; Protocol Stop: 08/07/18 08:59 Last Admin: 06/11/18 08:54 Dose: 12.5 mg General: demented HEENT: NC/AT, PERRLA Neck: Supple Lungs: CTAB Cardiovascular: RRR, Normal S1, Normal S2, without murmur Abdomen: soft, non-tender, non-distended, positive bowel sound Extremities: excoriation Neurological: no change Internal Medicine Assmt/Plan - Assessment Assessment: - Assessment Assessment: ASSESSMENT: Agitation, hypertension, dementia. anemia ri hypothroidism - - Plan Plan: Plan: PLAN: Continue patient's home medication. We will adjust the patient's blood pressure medications accordingly. We will continue to monitor this patient. monitor h and h cont on synthroid shawanda rn Nutritional Asmnt/Malnutr-PDOC - Dietary Evaluation Malnutrition Findings (Please click <Entered> for more info): Nutritional Asmnt/Malnutrition Start: 06/04/18 15: 15 Text: Status: Complete Freq: Protocol: Document 06/04/18 15:15 LCHENG (Rec: 06/04/18 15:30 LCHENG [email or web address]) Nutritional Asmnt/Malnutrition Patient General Information Nutritional Screening Low Risk Diagnosis psychosis, dementia Pertinent Medical Hx/Surgical Hx HTN, dementia Subjective Information Pt seen eating lunch in dining room, confused, asking where her father is. Per EMR, PO itnake 75-100%. Current Diet Order/ Nutrition Support regular Pertinent Medications lipitor, colace, synthroid, theragran, seroquel Pertinent Labs 05/31 BUN 33, Ca 8.4, Clb 3.3 Nutritional Hx/Data Height 1.65 m Height (Calculated Centimeters) 165.1 Current Weight (lbs) 68.039 kg Weight (Calculated Kilograms) 68.0 Weight (Calculated Grams) 03955.9 [place] Body Weight 130 Body Mass Index (BMI) 25.0 Weight Status Overweight GI Symptoms GI Symptoms None Last BM 06/01 x 2 Difficult in: None Skin Integrity/Comment: intact Current %PO Good (75-100%) Estimated Nutritional Goals BEE in Kcals: Using Current wt Calories/Kcals/Kg 23-27 Kcals Calculated 1922-5862 Protein: Using Current wt Protein g/k Protein Calculated 68 Fluid: ml 1564-1836ml (1ml/kcal) Nutritional Problem No current Nutrition Prob Problem N/A Malnutrition Alert Is there a minimum of two criteria No selected? Query Text:Check all the applicable criteria. A minimum of two criteria are recommended for diagnosis of either severe or non-severe malnutrition. Malnutrition Related to Morbid Obesity Malnutrition related to morbid obesity No Intervention/Recommendation Comments 1. Continue with regular diet as ordered. 2. Monitor PO intake, wt, labs and skin integrity 3. F/U as low risk in 7 days Expected Outcomes/Goals Expected Outcomes/Goals 1. PO intake to meet at least 75% of nutritional needs. 2. Wt stability, skin to remain intact, labs to approach WNL.
[2018-06-12] MEDS: Levothyroxine 0.025 Mg Tab PO SCH (06:36)
[2018-06-12] MEDS: Multivitamin Tab PO SCH (09:12)
--- NOTE | 2018-06-12 09:43 | Progress Notes ---
DATE: 06/11/2018 The patient is very agitated and distressed, moving her hands rhythmically, pulling on her hair, acting very strange, bizarre, unpredictable, impulsive, appearing to be in some emotional distress, currently on dosing of Seroquel. ASSESSMENT: The patient remains symptomatic, ongoing concerns about her ability to function at a lower level of care, still appearing in quite a bit of distress. We will continue to monitor and will be adjusting her dose of medications. [facility]# [id number]
--- NOTE | 2018-06-12 11:53 | Internal Medicine Prog Note ---
Internal Medicine Subjective - Subjective Patient seen and examined:: with staff, chart reviewed Patient is:: awake, verbal, interactive, agitated Per staff patient has:: no adverse event, no episodes of fall, tolerating meds Internal Medicine Objective - Results Result Diagrams: 05/31/18 12:55 05/31/18 12:55 Recent Labs: Laboratory Last Values WBC 6.9 Th/cmm (4.8-10.8) 05/31/18 12:55 RBC 3.07 Mil/cmm (3.80-5.20) L 05/31/18 12:55 Hgb 8.9 gm/dL (12-16) L 05/31/18 12:55 Hct 27.2 % (41.0-60) L 05/31/18 12:55 MCV 88.5 fl (81-100) 05/31/18 12:55 MCH 29.0 pg (27.0-31.0) 05/31/18 12:55 MCHC Differential 32.8 pg (28.0-36.0) 05/31/18 12:55 RDW 14.9 % (11.5-20.0) 05/31/18 12:55 Plt Count 250 Th/cmm (150-400) 05/31/18 12:55 MPV 7.3 fl 05/31/18 12:55 Neutrophils % 68.1 % (40.0-80.0) 05/31/18 12:55 Lymphocytes % 16.8 % (20.0-50.0) L 05/31/18 12:55 Monocytes % 14.3 % (2.0-10.0) H 05/31/18 12:55 Eosinophils % 0.2 % (0.0-5.0) 05/31/18 12:55 Basophils % 0.6 % (0.0-2.0) 05/31/18 12:55 Sodium 139 mEq/L (136-145) 05/31/18 12:55 Potassium 3.9 mEq/L (3.5-5.1) 05/31/18 12:55 Chloride 104 mEq/L (98-107) 05/31/18 12:55 Carbon Dioxide 27.6 mEq/L (21.0-31.0) 05/31/18 12:55 Anion Gap 11.3 (7.0-16.0) 05/31/18 12:55 BUN 33 mg/dL (7-25) H 05/31/18 12:55 Creatinine 1.1 mg/dL (0.6-1.2) 05/31/18 12:55 Est GFR ( Amer) TNP 05/31/18 12:55 Est GFR (Non-Af Amer) TNP 05/31/18 12:55 BUN/Creatinine Ratio 30.0 05/31/18 12:55 Glucose 108 mg/dL (70-105) H 05/31/18 12:55 Calcium 8.4 mg/dL (8.6-10.3) L 05/31/18 12:55 Total Bilirubin 0.2 mg/dL (0.3-1.0) L 05/31/18 12:55 AST 28 U/L (13-39) 05/31/18 12:55 ALT 19 U/L (7-52) 05/31/18 12:55 Alkaline Phosphatase 58 U/L (34-104) 05/31/18 12:55 Total Protein 5.7 gm/dL (6.0-8.3) L 05/31/18 12:55 Albumin 3.3 gm/dL (3.7-5.3) L 05/31/18 12:55 Globulin 2.4 gm/dL 05/31/18 12:55 Albumin/Globulin Ratio 1.4 (1.0-1.8) 05/31/18 12:55 Triglycerides 70 mg/dL (<150) 05/31/18 12:55 Cholesterol 123 mg/dL (<200) 05/31/18 12:55 LDL Cholesterol Direct 63 mg/dL (75-193) L 05/31/18 12:55 HDL Cholesterol 45 mg/dL (23-92) 05/31/18 12:55 TSH 3.69 uIU/ml (0.34-5.60) 05/31/18 12:55 Urine Source CLEAN C 05/31/18 14:06 Urine Color STRAW 05/31/18 14:06 Urine Clarity CLEAR (CLEAR) 05/31/18 14:06 Urine pH 6.0 (4.6 - 8.0) 05/31/18 14:06 Ur Specific [place] 1.010 (1.005-1.030) 05/31/18 14:06 Urine Protein NEGATIVE mg/dL (NEGATIVE) 05/31/18 14:06 Urine Glucose (UA) NEGATIVE mg/dL (NEGATIVE) 05/31/18 14:06 Urine Ketones NEGATIVE mg/dL (NEGATIVE) 05/31/18 14:06 Urine Blood NEGATIVE (NEGATIVE) 05/31/18 14:06 Urine Nitrate NEGATIVE (NEGATIVE) 05/31/18 14:06 Urine Bilirubin NEGATIVE (NEGATIVE) 05/31/18 14:06 Urine Urobilinogen 0.2 E.U./dL (0.2 - 1.0) 05/31/18 14:06 Ur Leukocyte Esterase NEGATIVE (NEGATIVE) 05/31/18 14:06 RPR NONREACTIVE (NONREACTIVE) 05/31/18 12:55 - Physical Exam Vitals and I&O: Vital Signs Temp 97.9 F 06/12/18 06:30 Pulse 76 06/12/18 06:30 Resp 20 06/12/18 06:30 BP 160/71 06/12/18 06:30 Pulse Ox 97 06/12/18 06:30 Intake & Output 06/11/18 06/12/18 06/12/18 18:59 06:59 18:59 Intake Total 900 120 Output Total 1 Balance 900 119 Weight (lbs) 67.585 kg Intake: Oral 900 120 Output: Urine/Stool Mix 1 Other: # Voids 4 3 # Bowel Movements 1 0 Weight Source Bedscale Active Medications: Current Medications Atorvastatin Calcium (Lipitor) 40 mg PO DAILY [facility] Stop: 07/31/18 08:59 Last Admin: 06/12/18 09:11 Dose: 40 mg Citalopram Hydrobromide (Celexa) 10 mg PO DAILY [facility] Stop: 07/31/18 08:59 Last Admin: 06/12/18 09:11 Dose: 10 mg Divalproex Sodium (Depakote Dr) 500 mg PO TID [facility]; Protocol Stop: 07/31/18 08:59 Last Admin: 06/12/18 09:18 Dose: 500 mg Docusate Sodium (Colace) 100 mg PO DAILY PRN PRN Reason: Constipation Stop: 07/31/18 00:21 Donepezil HCl (Aricept) 5 mg PO DAILY [facility] Stop: 07/31/18 08:59 Last Admin: 06/12/18 09:12 Dose: 5 mg Levothyroxine Sodium (Synthroid) 0.025 mg PO QDAC [facility] Stop: 07/31/18 07:29 Last Admin: 06/12/18 06:36 Dose: 0.025 mg Lorazepam (Ativan) 0.5 mg PO Q6HR PRN; Protocol PRN Reason: Anxiety Stop: 07/31/18 00:21 Last Admin: 06/12/18 09:10 Dose: 0.5 mg Multivitamins/Vitamin C (Theragran) 1 tab PO DAILY [facility] Stop: 07/31/18 08:59 Last Admin: 06/12/18 09:12 Dose: 1 tab Quetiapine Fumarate 50 mg/ (Quetiapine Fumarate 25 mg) 75 mg PO HS [facility] Stop: 08/05/18 20:59 Last Admin: 06/11/18 20:49 Dose: 75 mg Quetiapine Fumarate (Seroquel) 12.5 mg PO DAILY [facility]; Protocol Stop: 08/07/18 08:59 Last Admin: 06/12/18 09:11 Dose: 12.5 mg Quetiapine Fumarate (Seroquel) 12.5 mg PO 1300 [facility]; Protocol Stop: 08/11/18 12:59 General: demented HEENT: NC/AT, PERRLA Neck: Supple Lungs: CTAB Cardiovascular: RRR, Normal S1, Normal S2, without murmur Abdomen: soft, non-tender, non-distended, positive bowel sound Extremities: excoriation Neurological: no change Internal Medicine Assmt/Plan - Assessment Assessment: - Assessment Assessment: ASSESSMENT: Agitation, hypertension, dementia. anemia ri hypothroidism - - Plan Plan: Plan: PLAN: Continue patient's home medication. We will adjust the patient's blood pressure medications accordingly. We will continue to monitor this patient. monitor h and h cont on synthroid dw rn Nutritional Asmnt/Malnutr-PDOC - Dietary Evaluation Malnutrition Findings (Please click <Entered> for more info): Nutritional Asmnt/Malnutrition Start: 06/04/18 15: 15 Text: Status: Complete Freq: Protocol: Document 06/04/18 15:15 LCHENG (Rec: 06/04/18 15:30 LCJULIOG [email or web address]) Nutritional Asmnt/Malnutrition Patient General Information Nutritional Screening Low Risk Diagnosis psychosis, dementia Pertinent Medical Hx/Surgical Hx HTN, dementia Subjective Information Pt seen eating lunch in dining room, confused, asking where her father is. Per EMR, PO itnake 75-100%. Current Diet Order/ Nutrition Support regular Pertinent Medications lipitor, colace, synthroid, theragran, seroquel Pertinent Labs 05/31 BUN 33, Ca 8.4, Clb 3.3 Nutritional Hx/Data Height 1.65 m Height (Calculated Centimeters) 165.1 Current Weight (lbs) 68.039 kg Weight (Calculated Kilograms) 68.0 Weight (Calculated Grams) 51857.9 [place] Body Weight 130 Body Mass Index (BMI) 25.0 Weight Status Overweight GI Symptoms GI Symptoms None Last BM 06/01 x 2 Difficult in: None Skin Integrity/Comment: intact Current %PO Good (75-100%) Estimated Nutritional Goals BEE in Kcals: Using Current wt Calories/Kcals/Kg 23-27 Kcals Calculated 4619-1725 Protein: Using Current wt Protein g/k Protein Calculated 68 Fluid: ml 1564-1836ml (1ml/kcal) Nutritional Problem No current Nutrition Prob Problem N/A Malnutrition Alert Is there a minimum of two criteria No selected? Query Text:Check all the applicable criteria. A minimum of two criteria are recommended for diagnosis of either severe or non-severe malnutrition. Malnutrition Related to Morbid Obesity Malnutrition related to morbid obesity No Intervention/Recommendation Comments 1. Continue with regular diet as ordered. 2. Monitor PO intake, wt, labs and skin integrity 3. F/U as low risk in 7 days Expected Outcomes/Goals Expected Outcomes/Goals 1. PO intake to meet at least 75% of nutritional needs. 2. Wt stability, skin to remain intact, labs to approach WNL.
--- NOTE | 2018-06-13 00:50 | Progress Notes ---
DATE: 06/12/2018 SUBJECTIVE: The patient appearing somewhat more comfortable today, not as agitated, not as restless, still a lot of confusion, disorientation, not talking nonsensically, less distressed, likely approaching her baseline. ASSESSMENT: The patient seems markedly calmer, still very withdrawn, still needing some prompting, redirection. PLAN: We will continue to monitor. The patient residing at [facility]. We will monitor for further 24 hours, given recent medication changes. JOB# [id number]
[2018-06-13] MEDS: Levothyroxine 0.025 Mg Tab PO SCH (06:35)
[2018-06-13] MEDS: Multivitamin Tab PO SCH (11:19)
--- NOTE | 2018-06-13 11:46 | Internal Medicine Prog Note ---
Internal Medicine Subjective - Subjective Patient seen and examined:: with staff, chart reviewed Patient is:: awake, verbal, interactive, agitated Per staff patient has:: no adverse event, no episodes of fall, tolerating meds Internal Medicine Objective - Results Result Diagrams: 05/31/18 12:55 05/31/18 12:55 Recent Labs: Laboratory Last Values WBC 6.9 Th/cmm (4.8-10.8) 05/31/18 12:55 RBC 3.07 Mil/cmm (3.80-5.20) L 05/31/18 12:55 Hgb 8.9 gm/dL (12-16) L 05/31/18 12:55 Hct 27.2 % (41.0-60) L 05/31/18 12:55 MCV 88.5 fl (81-100) 05/31/18 12:55 MCH 29.0 pg (27.0-31.0) 05/31/18 12:55 MCHC Differential 32.8 pg (28.0-36.0) 05/31/18 12:55 RDW 14.9 % (11.5-20.0) 05/31/18 12:55 Plt Count 250 Th/cmm (150-400) 05/31/18 12:55 MPV 7.3 fl 05/31/18 12:55 Neutrophils % 68.1 % (40.0-80.0) 05/31/18 12:55 Lymphocytes % 16.8 % (20.0-50.0) L 05/31/18 12:55 Monocytes % 14.3 % (2.0-10.0) H 05/31/18 12:55 Eosinophils % 0.2 % (0.0-5.0) 05/31/18 12:55 Basophils % 0.6 % (0.0-2.0) 05/31/18 12:55 Sodium 139 mEq/L (136-145) 05/31/18 12:55 Potassium 3.9 mEq/L (3.5-5.1) 05/31/18 12:55 Chloride 104 mEq/L (98-107) 05/31/18 12:55 Carbon Dioxide 27.6 mEq/L (21.0-31.0) 05/31/18 12:55 Anion Gap 11.3 (7.0-16.0) 05/31/18 12:55 BUN 33 mg/dL (7-25) H 05/31/18 12:55 Creatinine 1.1 mg/dL (0.6-1.2) 05/31/18 12:55 Est GFR ( Amer) TNP 05/31/18 12:55 Est GFR (Non-Af Amer) TNP 05/31/18 12:55 BUN/Creatinine Ratio 30.0 05/31/18 12:55 Glucose 108 mg/dL (70-105) H 05/31/18 12:55 Calcium 8.4 mg/dL (8.6-10.3) L 05/31/18 12:55 Total Bilirubin 0.2 mg/dL (0.3-1.0) L 05/31/18 12:55 AST 28 U/L (13-39) 05/31/18 12:55 ALT 19 U/L (7-52) 05/31/18 12:55 Alkaline Phosphatase 58 U/L (34-104) 05/31/18 12:55 Total Protein 5.7 gm/dL (6.0-8.3) L 05/31/18 12:55 Albumin 3.3 gm/dL (3.7-5.3) L 05/31/18 12:55 Globulin 2.4 gm/dL 05/31/18 12:55 Albumin/Globulin Ratio 1.4 (1.0-1.8) 05/31/18 12:55 Triglycerides 70 mg/dL (<150) 05/31/18 12:55 Cholesterol 123 mg/dL (<200) 05/31/18 12:55 LDL Cholesterol Direct 63 mg/dL (75-193) L 05/31/18 12:55 HDL Cholesterol 45 mg/dL (23-92) 05/31/18 12:55 TSH 3.69 uIU/ml (0.34-5.60) 05/31/18 12:55 Urine Source CLEAN C 05/31/18 14:06 Urine Color STRAW 05/31/18 14:06 Urine Clarity CLEAR (CLEAR) 05/31/18 14:06 Urine pH 6.0 (4.6 - 8.0) 05/31/18 14:06 Ur Specific [place] 1.010 (1.005-1.030) 05/31/18 14:06 Urine Protein NEGATIVE mg/dL (NEGATIVE) 05/31/18 14:06 Urine Glucose (UA) NEGATIVE mg/dL (NEGATIVE) 05/31/18 14:06 Urine Ketones NEGATIVE mg/dL (NEGATIVE) 05/31/18 14:06 Urine Blood NEGATIVE (NEGATIVE) 05/31/18 14:06 Urine Nitrate NEGATIVE (NEGATIVE) 05/31/18 14:06 Urine Bilirubin NEGATIVE (NEGATIVE) 05/31/18 14:06 Urine Urobilinogen 0.2 E.U./dL (0.2 - 1.0) 05/31/18 14:06 Ur Leukocyte Esterase NEGATIVE (NEGATIVE) 05/31/18 14:06 RPR NONREACTIVE (NONREACTIVE) 05/31/18 12:55 - Physical Exam Vitals and I&O: Vital Signs Temp 98.8 F 06/13/18 06:18 Pulse 83 06/13/18 06:18 Resp 18 06/13/18 06:18 BP 150/80 06/13/18 06:18 Pulse Ox 95 06/13/18 06:18 Intake & Output 06/12/18 06/13/18 06/13/18 18:59 06:59 18:59 Intake Total 900 240 Balance 900 240 Intake: Oral 900 240 Other: # Voids 4 1 # Bowel Movements 2 0 Active Medications: Current Medications Atorvastatin Calcium (Lipitor) 40 mg PO DAILY [facility] Stop: 07/31/18 08:59 Last Admin: 06/13/18 11:16 Dose: 40 mg Citalopram Hydrobromide (Celexa) 10 mg PO DAILY [facility] Stop: 07/31/18 08:59 Last Admin: 06/13/18 11:20 Dose: 10 mg Divalproex Sodium (Depakote Dr) 500 mg PO TID [facility]; Protocol Stop: 07/31/18 08:59 Last Admin: 06/13/18 11:19 Dose: 500 mg Docusate Sodium (Colace) 100 mg PO DAILY PRN PRN Reason: Constipation Stop: 07/31/18 00:21 Donepezil HCl (Aricept) 5 mg PO DAILY [facility] Stop: 07/31/18 08:59 Last Admin: 06/13/18 11:19 Dose: 5 mg Levothyroxine Sodium (Synthroid) 0.025 mg PO QDAC [facility] Stop: 07/31/18 07:29 Last Admin: 06/13/18 06:35 Dose: 0.025 mg Lorazepam (Ativan) 0.5 mg PO Q6HR PRN; Protocol PRN Reason: Anxiety Stop: 07/31/18 00:21 Last Admin: 06/13/18 11:18 Dose: 0.5 mg Multivitamins/Vitamin C (Theragran) 1 tab PO DAILY [facility] Stop: 07/31/18 08:59 Last Admin: 06/13/18 11:19 Dose: 1 tab Quetiapine Fumarate 50 mg/ (Quetiapine Fumarate 25 mg) 75 mg PO HS [facility] Stop: 08/05/18 20:59 Last Admin: 06/12/18 21:55 Dose: 75 mg Quetiapine Fumarate (Seroquel) 12.5 mg PO DAILY [facility]; Protocol Stop: 08/07/18 08:59 Last Admin: 06/13/18 11:18 Dose: 12.5 mg Quetiapine Fumarate (Seroquel) 12.5 mg PO 1300 [facility]; Protocol Stop: 08/11/18 12:59 Last Admin: 06/12/18 13:10 Dose: 12.5 mg General: demented HEENT: NC/AT, PERRLA Neck: Supple Lungs: CTAB Cardiovascular: RRR, Normal S1, Normal S2, without murmur Abdomen: soft, non-tender, non-distended, positive bowel sound Extremities: excoriation Neurological: no change Internal Medicine Assmt/Plan - Assessment Assessment: - Assessment Assessment: ASSESSMENT: Agitation, hypertension, dementia. anemia ri hypothroidism - - Plan Plan: Plan: PLAN: Continue patient's home medication. We will adjust the patient's blood pressure medications accordingly. We will continue to monitor this patient. monitor h and h cont on synthroid dw rn Nutritional Asmnt/Malnutr-PDOC - Dietary Evaluation Malnutrition Findings (Please click <Entered> for more info): Nutritional Asmnt/Malnutrition Start: 06/04/18 15: 15 Text: Status: Complete Freq: Protocol: Document 06/04/18 15:15 LCHENG (Rec: 06/04/18 15:30 LCHENG [email or web address]) Nutritional Asmnt/Malnutrition Patient General Information Nutritional Screening Low Risk Diagnosis psychosis, dementia Pertinent Medical Hx/Surgical Hx HTN, dementia Subjective Information Pt seen eating lunch in dining room, confused, asking where her father is. Per EMR, PO itnake 75-100%. Current Diet Order/ Nutrition Support regular Pertinent Medications lipitor, colace, synthroid, theragran, seroquel Pertinent Labs 05/31 BUN 33, Ca 8.4, Clb 3.3 Nutritional Hx/Data Height 1.65 m Height (Calculated Centimeters) 165.1 Current Weight (lbs) 68.039 kg Weight (Calculated Kilograms) 68.0 Weight (Calculated Grams) 87194.9 [place] Body Weight 130 Body Mass Index (BMI) 25.0 Weight Status Overweight GI Symptoms GI Symptoms None Last BM 06/01 x 2 Difficult in: None Skin Integrity/Comment: intact Current %PO Good (75-100%) Estimated Nutritional Goals BEE in Kcals: Using Current wt Calories/Kcals/Kg 23-27 Kcals Calculated 2203-7672 Protein: Using Current wt Protein g/k Protein Calculated 68 Fluid: ml 1564-1836ml (1ml/kcal) Nutritional Problem No current Nutrition Prob Problem N/A Malnutrition Alert Is there a minimum of two criteria No selected? Query Text:Check all the applicable criteria. A minimum of two criteria are recommended for diagnosis of either severe or non-severe malnutrition. Malnutrition Related to Morbid Obesity Malnutrition related to morbid obesity No Intervention/Recommendation Comments 1. Continue with regular diet as ordered. 2. Monitor PO intake, wt, labs and skin integrity 3. F/U as low risk in 7 days Expected Outcomes/Goals Expected Outcomes/Goals 1. PO intake to meet at least 75% of nutritional needs. 2. Wt stability, skin to remain intact, labs to approach WNL.
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
== END 2018-06-13 15:22 | DRG 885 ==
LOC: ER 12:10 → GERO 21:25
PROVIDERS: ADMIT Psychiatry & Neurology Psychiatry; ATTEND Psychiatry & Neurology Psychiatry
DX: F29 Unspecified psychosis not due to a substance or known physiological condition (principal); F03.91 Unspecified dementia, unspecified severity, with behavioral disturbance; F39 Unspecified mood [affective] disorder; F41.9 Anxiety disorder, unspecified; I10 Essential (primary) hypertension; D64.9 Anemia, unspecified; R58 Hemorrhage, not elsewhere classified; E03.9 Hypothyroidism, unspecified; N28.9 Disorder of kidney and ureter, unspecified; Z91.81 History of falling; Z88.5 Allergy status to narcotic agent
CPT/HCPCS: 36415-UA; 70450-TC; 80053-TC; 80061-TC; 81003-TC; 83036-90; 84443-TC; 85025-TC; 86592-TC; 93005; G0410; J1200; J1630; J2060; Z7610